=== PATIENT | female | born 1970 | race Caucasian/White ===

== ENCOUNTER 2022-06-21 08:34 | Outpatient (CLI) | payer OTHER, SELFPAY | END 2022-06-21 08:35 | disposition home or self-care (01) | LOC: NFLDREF 06-22 16:07 | PROVIDERS: PCP Physician Assistant Medical; Referring Provider Physician Assistant Medical; Visit Provider Physician Assistant Medical | DX: Z00.00 Encounter for general adult medical examination without abnormal findings (principal); F41.9 Anxiety disorder, unspecified; L70.9 Acne, unspecified; Z13.6 Encounter for screening for cardiovascular disorders; Z13.29 Encounter for screening for other suspected endocrine disorder | CPT/HCPCS: 80053; 80061; 84443 ==

== ENCOUNTER 2022-07-05 14:49 | Outpatient (CLI) | payer OTHER, SELFPAY ==
--- NOTE | 2022-07-05 15:00 | CRLHL7_ITS ---
For Patients: As a result of the Century Cures Act, medical imaging exams and procedure reports are released immediately into your electronic medical record. You may view this report before your referring provider. If you have questions, please contact your health care provider. BILATERAL SCREENING MAMMOGRAM WITH COMPUTER-AIDED DETECTION AND TOMOSYNTHESIS TECHNIQUE: CC and MLO views were obtained. These mammographic images have been obtained using full-field digital technique. These mammographic images were interpreted with the benefit of computer-aided detection. Breast Tomosynthesis was used in this interpretation. COMPARISON FILM: 06/18/21, 06/07/20, 04/27/19. FINDINGS: The breasts are heterogeneously dense, which may obscure small masses IMPRESSION: There is no radiographic evidence for malignancy. ASSESSMENT: BI-RADS Category 1: Negative RECOMMENDATION: Routine screening mammogram in 1 year. A lay language report of this examination will be provided to the patient. Chapo Dial M.D. Diagnostic/Nuclear Medicine Radiologist [email or web address] CHANNING/Dictated by: Chapo Dial MD @ 07/08/2022 9:08:00 AM (Electronically Signed)
== END 2022-07-05 14:50 | disposition home or self-care (01) ==
LOC: MAMMO 14:50
PROVIDERS: PCP Physician Assistant Medical; Visit Provider Physician Assistant Medical
DX: Z12.31 Encounter for screening mammogram for malignant neoplasm of breast (principal); R92.2 Inconclusive mammogram
CPT/HCPCS: 77063; 77067

== ENCOUNTER 2023-07-07 15:05 | Outpatient (CLI) | payer OTHER, SELFPAY ==
--- OUTSIDE RECORDS SUMMARY | 2023-07-07 15:07 | XMS_ITS | Clinical Summary ---
Author Name Unknown Organization [facility] Address [address] [place] [address] Care Team Providers Care Product Info Specialist Name Role Phone Denia Ramey MD Unavailable [phone] Jonelle Marie RN Unavailable Unavailab Denia Reyes MD Unavailable [phone] Allergies Active Allergy Reactions Criticality Noted Date Comments Clindamycin Rash Low 04/10/2015 Levofloxacin 06/17/2013 Penicillins 06/17/2013 Sulfa Antibiotics 06/17/2013 Tetracycline Other (See Comments) High 04/10/2015 Chest tightness Hydrocodone-Acetaminophe n 06/17/2013 Medications Medication Sig Dispensed Refills Start Date End Date Status VITAMIN D, CHOLECALCIFEROL, PO Take by mouth daily Active MAGNESIUM OXIDE PO Active St Lima Wort 300 MG CAPS Active Cyanocobalamin (VITAMIN B 12 PO) Active Multiple Vitamins-Minerals (ZINC PO) Active UNABLE TO FIND MEDICATION NAME: vitamin b 6 Active cetirizine (ZYRTEC) 10 MG tablet Take 10 mg by mouth 10/21/2014 Act loren Active Problems Problem Noted Date Diagnosed Date 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 lagophthalmos left upper eyelid 2015 Facial paralysis on left side 07/10/2015 Dysarthria 07/10/2015 Oral phase dysphagia 07/10/2015 Encounters Date Type Department Care Team Description 07/07/2023 Travel 05/23/2023 Travel 04/18/2023 Travel from Last 3 Months Immunizations Name Administration Dates Next Due Influenza (IIV3) PF 12/18/2011 Influenza Vaccine >6 months,quad, PF 12/05/2015 Influenza Vaccine, 6+MO IM ( QUADRIVALENT W/PRESERVATIVES) 12/05/2016 TD,PF 7+ (Tenivac) 03/02/2000 TDAP (Adacel,Boostrix) 12/14/2010 Family History Medical History Relation Comments Cancer Father prostate Hypertension Father Prostate Cancer Father Cancer Maternal Grandfather mesotheliom a Hypertension Maternal Grandmother Cancer Paternal Grandfather throat Other Cancer Paternal Grandfather Cancer Paternal Grandmother pancreatic Other Cancer Paternal Grandmother pancreatic Relation Status Comments Father Maternal Grandfather Maternal Grandmother Paternal Grandfather Paternal Grandmother Social History Tobacco Use Types Packs/Day Years Used Date Smoking Tobacco: Never Smokeless Tobacco: Never Tobacco Cessation:Counseling Given: No Alcohol Use Standard Drinks/Week Comments Yes 0 (1 standard drink = 0.6 oz pur e alcohol) 2/week PHQ-2 Answer Date Recorded PHQ-2 Score 0 03/10/2018 Adolescent Education Answer Date Record ed Getting School Help Needed Not on file 11/23 Sex and Gender Information Value Date Recorded Sex Assigned at Female 06/21/2021 7:34 PM CDT Gender Identity Female 06/21/2021 7:34 PM CDT Sexual Orientation Straight 06/21/2021 7: 34 PM CDT Last Filed Vital Signs Vital Sign Reading Time Taken Comments Blood Pressure 120/72 04/24/2015 7:40 AM HAND SCRAPER Pulse 91 04/24/2015 7:40 AM HAND SCRAPER Temperature 36.8 ??C (98.2 ??F) 04/24/2015 7:40 AM CS T Respiratory Rate 16 04/01/2015 5:36 PM HAND SCRAPER Oxygen Saturation 98% 04/24/2015 7:40 AM HAND SCRAPER Inhaled Oxygen Concentration - - Weight 59.9 kg (132 lb) 02/03/2019 11:21 AM HAND SCRAPER Height 170.2 cm (5' 7) 02/03/2019 11:21 AM HAND SCRAPER Body Mass Index 20.67 02/03/2019 11:21 AM HAND SCRAPER Plan of Treatment Health Maintenance Due Date Last Done Comments ADVANCE CARE PLANNING 1969 ANNUAL REVIEW OF HM ORDERS 1969 CT COLONOGRAPHY 1969 FIT 1969 FLEX SIG 1969 sDNA (Cologuard) 1969 COLONOSCOPY 08/22/1979 COLORECTAL CANCER SCREENING 08/22/1979 HIV SCREENING 1984 HEPATITIS C SCREENING 08/22/1987 GLUCOSE 10/09/2013 10/09/2010 MAMMO SCREENING 10/19/2017 10/20/2015, 11/02, 10/18/2014 LIPID 10/25/2019 10/24/2014, 10/09/2010 YEARLY PREVENTIVE VISIT 04/02/2020 04/02/2019 HPV TEST 03/16/2021 03/16/2018, 03/03, 06/01/2014, Additional history exists PAP 03/16/2021 03/16/2018, 03/03, 06/01/2014, Additional history exists PHQ-2 (once per calendar year) 2023 04/10/2015 DTAP/TDAP/TD IMMUNIZATION (3 - Td or Tdap) 02/28/2031 02/28/2021, 12/14/2010, 03/02/2000 HEPATITIS B IMMUNIZATION Completed 005, 07/13/2004, 06/11/2004 ZOSTER IMMUNIZATION Completed 10/15/2021, INFLUENZA VACCINE Completed 12/17/2022, , 11/26/2018, Additional history exists COVID-19 Vaccine Completed 01/04/2023, 08/2021, 01/04/2021, Additional history exists HPV IMMUNIZATION Aged Out No longer e ligible based on patient's age to complete this topic IPV IMMUNIZATION Aged Out No longer e ligible based on patient's age to complete this topic MENINGITIS IMMUNIZATION Aged Out No l onger eligible based on patient's age to complete this topic Pneumococcal Vaccine: Pediatrics (0 to 5 Years) and At-Risk Patients (6 to 64 Years) Aged Out No longer eligible based on patient's age to complete this topic RSV MONOCLONAL ANTIBODY Aged Out No l onger eligible based on patient's age to complete this topic Procedures Procedure Name Priority Date/Time Associated Diagnosis Comments HC CHEMODENERVATION, FACE NERVE MUSCLE Routine 07/07/2023 1:02 PM CDT 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 HC CHEMODENERVATION MUSCLE NECK UNILAT Routine 04/18/2023 4:55 PM HAND SCRAPER 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 HC CHEMODENERVATION, FACE NERVE MUSCLE Routine 04/18/2023 4:55 PM HAND SCRAPER 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 MAMMOGRAM - HIM SCAN 10/20/2015 12:00 AM CDT LIPID PROFILE Routine 10/24/2014 GLUCOSE Routine 10/09/2010 HCL PAP SMEAR Routine 07/26/1998 1:18 PM CDT Gynecologic Examination from Last 3 Months or Most Recently Relevant to Health Maintenance Results * MAMMOGRAM - HIM SCAN (10/20/2015 12:00 AM CDT) Anatomical Region Laterality Modality Other 10/20/2015 Provider Outside IMG MAMMOGRAPHY NIA SAUCEDO * Lipid Profile (10/24/2014) Cholesterol 186 115 - 199 mg/dL EXTERNAL LAB Triglycerides 58 mg/dL EXTERNAL LAB HDL Cholesterol 73 mg/dL EXTERNAL LAB LDL Cholesterol Calculated 101 mg/dL EXTERNAL LAB Blood specimen (specimen) 10/24/2014 Narrative EXTERNAL LAB - 10/24/2014 [facility] 05/15/2013 - 10/24/2014 Provider Outside LAB - BLOOD ORDERABL ES EXTERNAL LAB External Lab * Glucose (10/09/2010) Glucose 78 70 - 99 mg/dL EXTERNAL LAB Blood specimen (specimen) 10/09/2010 Narrative EXTERNAL LAB - 10/09/2010 [facility] 06/21/2008-03/07/2015 Provider Outside LAB - BLOOD ORDERABL ES Performing Organization Address City/[facility]/ZIP Co de Phone Number EXTERNAL LAB * PAP SMEAR (07/26/1998 1:18 PM CDT) Unlabelled DNR [facility] Biopsy Sent DNR [facility] Source VAG,CERV,E NDOCERV [facility] LMP POST [facility] PARA 3 [facility] 2 [facility] Clinical History DNR [facility] Therapy DNR [facility] Last Pap Diagnosis WITHIN NORMAL LIMITS [facility] PAP Date [id number] [facility] Specimen # DNR [facility] Tissue DNR [facility] Tissue Date DNR [facility] Statement of Adequacy [facility] Comment: SATISFACTORY FOR INTERPRETATION POST MENOPAUSAL PATIENT. ??NO ENDOCERVICAL CELLS SEEN. General Categorization DNR [facility] Descriptive Diagnosis [facility] Comment: WITHIN NORMAL LIMITS ATROPHIC CELL PATTERN Recommendations DNR [facility] DNR 114,,,,,, [facility] DNR DNR [facility] DNR DNR [facility] DNR DNR [facility] . [facility] Comment: ?PAP SMEARS ARE SUBJECT TO BOTH FALSE NEGATIVE AND FALSE ? POSITIVE RESULTS EVIDENCED BY DATA PUBLISHED IN THE ? MEDICAL LITERATURE. ??YOUR PATIENT'S RESULT SHOULD BE ? INTERPRETED IN THIS CONTEXT, TOGETHER WITH THE PATIENT'S ? HISTORY AND CLINICAL FINDINGS. TESTING LOCATION ? THIS TEST WAS PERFORMED AT [facility] ? [address] [place] [address]. [id number] ? PHONE NUMBERS FOR CYTOLOGY INQUIRES, INCLUDING SLIDE REQUESTS ? EXT. [id number] ?? EXT. [id number] 07/24/1998 Indiana Sanots MD LABORATORY Performing Organization Address City/[facility]/ZIP Co de Phone Number [facility] from Last 3 Months or Most Recently Relevant to Health Maintenance Care Teams Product Info Specialist Relationship Specialty Start Date End Date Denia Ramey MD [address] [place] [address] Otolaryngology 11/22/15 Jonelle Marie, RN Registered Nurse 03/07/16 Denia Ramey MD [address] [place] [address] Assigned Surgical Provider 12/24/19
--- OUTSIDE RECORDS SUMMARY | 2023-07-07 15:07 | XMS_ITS | Patient Health Record ---
Author Name Unknown Organization [facility] Address [address] [place] [address] Care Team Providers Care Laminate Floor Installer Name Role Phone None, No PCP Primary Care Provider UnavailAdan Trevizo Unavailable [phone] Nori Gonzalez Unavailable Allergies Allergen (clinical drug ingredient) Drug/Non Drug Allergy documented on EMR Reaction Allergy Type Onset Date Status clindamycin Clindamycin Unknown Drug Allergy Act loren Penicillin Unknown Drug Allergy Active Substance with sulfonamide structure and antibacterial mechanism of action (substance) Sulfa Antibiotics Unknown Drug Allergy Active tetracycline Tetracycline Unknown Drug Allergy A ctive Results Component Value Reference Range Notes THINPREP TIS AND HPV mRNA E6 /E7 (30 yrs and over) Reviewed date:08/27/2022 10:04:23 AM Interpretation: Performing Lab:[facility], [id number], [id number] Marcin Christensen Notes/Report: HPV mRNA E6/E7 Not Detected Not Detected Methodology: Legislative Analyst-Mediated Amplification This assay detects E6/E7 viral messenger RNA (mRNA) from 14 high-risk HPV types (16,18,31,33,35,39,45,51,52,5 6,58,59,66,68). Cervical sources are required for HPV testing. If a vaginal source from a patient who has had a total hysterectomy with removal of cervix was submitted, please contact the testing laboratory for alternative testing options. For additional information, please refer to http://education.[employer].com/faq/EKS455c0 (This link if provided for information/ educational purposes only.) Reason For Referral No Information Medications Medication SIG (Take, Route, Fr equency, Duration) Notes Start Date End Date Status B Complex Active Loratadine Active Estroven Active Eflornithine HCl Act loren Vitamin D Active Ocuvite Active Iron Active Vitamin C Active Calcium Active Social History Tobacco Use: Social History Observation Description Date Details (start date - stop date) Never Smoker NA - NA Tobacco Use/Smoking Question Answer Notes Are you a nonsmoker Vital Signs Blood pressure diastolic 84 mm Hg 08/20/2022 Height 65 in 08/20/2022 Blood pressure systolic 132 mm Hg 08/20/2022 Weight 139.4 lbs 08/20/2022 BMI 23.19 kg/m2 08/20/2022 Encounters Encounter Location Date Provider Diagnosis [facility] [address] [place] [address] 06/24/2023 Adan Glover [facility] [address] [place] [address] 08/20/2022 Nori Charles Encounter for annual routine gynecological examination Z01.419 and Encounter for screening for human papillomavirus (HPV) Z11.51 [facility] [address] [place] [address] 08/20/2022 Nori Charles Gynecologic exam normal Z01.419 Assessments Encounter Date Diagnosis (ICD Code) Assessment Notes Treat ment Notes Treatment Clinical Notes 08/20/2022 Gynecologic exam normal (ICD-10 - Z01.419) 08/20/2022 Encounter for screening for human papillomavirus (HPV) (ICD-10 - Z11.51) 08/20/2022 Encounter for annual routine gynecological examination (ICD-10 - Z01.419) 08/20/2022 Other 1. She is going to consider symptoms and if she desires HRT 2. pap today 3. She will call with any concerns Plan Of Treatment Next Appt Details Provider Name:Adan dunne, 08/13/2023 11:00:00 AM, [address] [place] [place], [address], Insurance Providers Payer Name Payer Address Payer Phone Subscriber Number Group Number Insured Name Patient Relationship to Insured Coverage Start Date Coverage End Date Preferred One PPO [address] [address] [place] [id number] Lita Miner Self - patient is the insured Medical (General) History Medical History History ICD Code Chicken Pox Surgical History Surgery Date(Month/Year) Bunionectomy left foot 2020
--- OUTSIDE RECORDS SUMMARY | 2023-07-07 15:08 | XMS_ITS | Encounter Summary ---
Author Name Unknown Organization [facility] Address [address] [place] [address] Care Team Providers Care Professor Of Philosophy Name Role Phone None Primary Care Provider Unavailabl e Denia Rmaey MD Unavailable [phone] Elin Tristan AuD Unavailable [phone] Brittnee Espinoza AuD Unavailable [phone] Verified, Pcp Unknown Primary Care Provider Unav ailable Jonelle Marie RN Unavailable Unavailab Arcadio Moore MD Unavailable [phone] Arcadio Castaneda MD Unavailable [phone] Deina Ramey MD Unavailable [phone] Encounter Details Date Type Department Care Team (Late st Contact Info) Description 07/28/2015 [facility] Medical Advice [facility] [address] [facility] [facility] [address] [place] [address] Denia Ramey MD [address] [facility] [address] [place] [address] Social History Tobacco Use Types Packs/Day Years Used Date Smoking Tobacco: Never Smokeless Tobacco: Never Alcohol Use Standard Drinks/Week Comments Yes 0 (1 standard drink = 0.6 oz pur e alcohol) 2/week Sex and Gender Information Value Date Recorded Sex Assigned at Female 06/21/2021 7:34 PM CDT Gender Identity Female 06/21/2021 7:34 PM CDT Sexual Orientation Straight 06/21/2021 7: 34 PM CDT documented as of this encounter Plan of Treatment Not on file documented as of this encounter Visit Diagnoses Not on filedocumented in this encounter Care Teams Professor Of Philosophy Relationship Specialty Start Date End Date None PCP - General 06/17/13 11/27/15 Verified, Pcp Unknown PCP - General 11/28/15 10/31/16 [place] [address] [place] [id number] PCP - Assigned PCP 03/16/15 04/25/18 Denia Ramey MD [address] [address] MD Otolaryngology 11/22/15 Elin Tristan AuD [address] [address] Fabricating Machine Operator Audiology 11/22/15 04/07/17 Brittnee Espinoza AuD [facility] [address] [place] [address] Fabricating Machine Operator Audiology 11/28/15 04/01/17 Jonelle Marie, RN Registered Nurse 03/07/16 [place] [address] [place] [id number] Assigned PCP 03/16/15 04/25/18 Denia Ramey MD [address] [address] Assigned Surgical Provider 12/24/19 documented as of this encounter
--- OUTSIDE RECORDS SUMMARY | 2023-07-07 15:08 | XMS_ITS | Referral Summary ---
Author Name Unknown Organization [facility] Address [address] [place] [address] Care Team Providers Care Fruit Or Nut Farmworker Name Role Phone Denia Ramey MD Unavailable [phone] Jonelle Marie RN Unavailable Unavailab le Denia Ramey MD Unavailable [phone] Encounters Date Type Department Care Team Description 07/07/2023 Travel 05/23/2023 Travel 04/18/2023 Travel from Last 3 Months Allergies Active Allergy Reactions Criticality Noted Date [...] 07/10/2015 Dysarthria 07/10/2015 Oral phase dysphagia 07/10/2015 Immunizations Name Administration Dates Next Due Influenza (IIV3) PF 12/18/2011 Influenza Vaccine >6 months,quad, PF 12/05/2015 Influenza Vaccine, 6+MO IM ( QUADRIVALENT W/PRESERVATIVES) 12/05/2016 TD,PF 7+ (Tenivac) 03/02/2000 TDAP (Adacel,Boostrix) 12/14/2010 Social History Tobacco Use Types Packs/Day Years [...] Comments Blood Pressure 120/72 04/24/2015 7:40 AM HUMAN PROJECTILE Pulse 91 04/24/2015 7:40 AM HUMAN PROJECTILE Temperature 36.8 ??C (98.2 ??F) 04/24/2015 7:40 AM CS T Respiratory Rate 16 04/01/2015 5:36 PM HUMAN PROJECTILE Oxygen Saturation 98% 04/24/2015 7:40 AM HUMAN PROJECTILE Inhaled Oxygen Concentration - - Weight 59.9 kg (132 lb) 02/03/2019 11:21 AM HUMAN PROJECTILE Height 170.2 cm (5' 7) 02/03/2019 11:21 AM HUMAN PROJECTILE Body Mass Index 20.67 02/03/2019 11:21 AM HUMAN PROJECTILE Plan of Treatment Not on file Procedures Procedure Name Priority Date/Time Associated Diagnosis Comments HC CHEMODENERVATION, FACE NERVE MUSCLE Routine 07/07/2023 1:02 PM CDT 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 HC CHEMODENERVATION MUSCLE NECK UNILAT Routine 04/18/2023 4:55 PM HUMAN PROJECTILE 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 05/15/2013 - 10/24/2014 Provider Outside LAB - BLOOD ORDERABL ES EXTERNAL LAB External Lab * Glucose (10/09/2010) Glucose 78 70 - 99 mg/dL EXTERNAL LAB Blood specimen (specimen) 10/09/2010 Narrative EXTERNAL LAB - 10/09/2010 [facility] 06/21/2008-03/07/2015 Provider Outside LAB - BLOOD ORDERABL ES EXTERNAL LAB * PAP SMEAR (07/26/1998 1:18 PM CDT) Unlabelled DNR [facility] Biopsy Sent DNR [facility] Source VAG,CERV,E NDOCERV [facility] LMP POST [facility] PARA 3 [facility] 2 [facility] Clinical History DNR [facility] Therapy DNR [facility] Last Pap Diagnosis WITHIN NORMAL LIMITS [facility] PAP Date [id number] [facility] Specimen # DNR [facility] Tissue DNR [facility] Tissue Date DNR [facility] Statement of Adequacy [facility] Comment: SATISFACTORY FOR INTERPRETATION POST MENOPAUSAL PATIENT. ??NO ENDOCERVICAL CELLS SEEN. General Categorization DNR [facility] Descriptive Diagnosis [facility] Comment: WITHIN NORMAL LIMITS ATROPHIC CELL PATTERN Recommendations DNR [facility] DNR 114,,,,,, [facility] DNR DNR [facility] DNR DNR [facility] DNR DNR [facility] . [facility] Comment: ?PAP SMEARS ARE SUBJECT TO BOTH FALSE NEGATIVE AND FALSE ? POSITIVE RESULTS EVIDENCED BY DATA PUBLISHED IN THE ? MEDICAL LITERATURE. ??YOUR PATIENT'S RESULT SHOULD BE ? INTERPRETED IN THIS CONTEXT, TOGETHER WITH THE PATIENT'S ? HISTORY AND CLINICAL FINDINGS. TESTING LOCATION ? THIS [facility] PERFOR[facility] AT [facility] ? [address]. [id number] ? PHONE NUMBERS FOR CYTOLOGY INQUIRES, INCLUDING SLIDE REQUESTS ? EXT. [id number] ?? EXT. [id number] 07/24/1998 Indiana Santos MD LABORATORY Performing Organization Address City/State/[facility] Co de Phone Number [facility] from Last 3 Months or Most Recently Relevant to Health Maintenance Care Teams Fruit Or Nut Farmworker Relationship Specialty Start Date End Date Denia Ramey MD [address] [address] Otolaryngology 11/22/15 Jonelle Marie, RN Registered Nurse 03/07/16 Denia Ramey MD [address] [place] [address] Assigned Surgical Provider 12/24/19
--- OUTSIDE RECORDS SUMMARY | 2023-07-07 15:08 | XMS_ITS | Encounter Summary ---
Author Name Unknown Organization [facility] Address [address] [place] [address] Care Team Providers Care Private Branch Exchange Repairer Name Role Phone Denia Ramey MD Unavailable Jonelle Marie RN Unavailable Unavailab Denia Reyes MD Unavailable [phone] Encounter Details Date Type Department Care Team (Latest Contact Info) Description 04/18/2023 Travel Social History Tobacco Use Types Packs/Day Years [...] on filedocumented in this encounter Care Teams Private Branch Exchange Repairer Relationship Specialty Start Date End Date Denia Ramey MD [address] [place] [address] [address] [place] [address] Otolaryngology 9/21/16 Jonelle Marie, RN Registered Nurse 03/07/16 Denia Ramey MD [address] [place] [address] Assigned Surgical Provider 12/24/19 documented as of this encounter
--- OUTSIDE RECORDS SUMMARY | 2023-07-07 15:08 | XMS_ITS | Encounter Summary ---
Author Name Unknown Organization [facility] Address [address] [place] [address] Care Team Providers Care Television Newscast Director Name Role Phone Denia Ramey MD Unavailable Jonelle Marie RN Unavailable Unavailab Denia Reyes MD Unavailable Encounter Details Date Type Department Care Team (Latest Contact Info) Description 05/23/2023 Travel Social History Tobacco Use Types Packs/Day [...] on filedocumented in this encounter Care Teams Television Newscast Director Relationship Specialty Start Date End Date Denia Ramey MD [address] [place] [address] [address] [place] [address] Otolaryngology 9/21/16 Jonelle Marie, RN Registered Nurse 03/07/16 Denia Ramey MD [address] [place] [address] Assigned Surgical Provider 12/24/19 documented as of this encounter
--- OUTSIDE RECORDS SUMMARY | 2023-07-07 15:08 | XMS_ITS | Clinical Summary ---
Author Name Unknown Organization [facility] Address [address] [place] [address] Care Team Providers Care Patient Registration Manager Name Role Phone Chapo Chiang MD Primary Care Provider [phone] Source Comments You are receiving this document as you are listed as the primary care provider,follow-up provider, or the patient has been referred to you for consultation.This is in compliance with the Medicare andMedicaid EHR Incentive Program,which states Providers who transition their patient to another setting of careor provider of care or refers their patient to another provider of care shouldprovide summary care record for each transition of care or referral. [facility] Allergies Active Allergy Reactions Criticality Noted Date Comments Amoxicillin 05/14/2003 PN: LW Reaction: Rash, Generalized Clindamycin 05/14/2003 PN: LW Reaction: Rash, Generalized Hydrocodone 01/09/2005 PN: LW Reaction: itchy, dizziness Minocycline 03/24/2007 PN: LW Reaction: heartburn Other 10/05/2004 PN: LW Other1: -Vicodine-itchy and dizzy 10/05 Sulfamethoxazole-Trimethop rim 12/31/2004 PN: LW Reaction: rash Medications Medication Sig Dispensed Refills Start Date End Date Status Multiple Vitamins-Minerals (MULTIVITAMIN OR) Take 1 tablet by mouth daily (every 24 hours). 100 13 09/01/2006 Active loratadine-pseudoeph edrine (CLARITIN-D) 10-240 MG tablet Take 1 tablet by mouth daily as needed. LW Addl Instr:Indicated for: Allergic Nasal Congestion 90 3 10/21/2005 Active UNKNOWN MEDICATION Indications: PN: 06/22/2007 Active tazarotene (AKA TAZORAC) 0.05 % cream Apply 1 Application topically every morning. LW Comment:needs apt. 06/2008 30 05/02/2008 Active Benzoyl Peroxide-Erythromyci n (BENZAMYCIN) 5-3 % gel Apply 1 Application topically 2 times daily. LW Addl Instr:Wash, rinse, and dry skin before applying. Avoid eyes and mucus membranes. Indicated for: Acne 46.6 2 03/07/2008 Active Additional Information Patient not taking.Reported on 04/02/2019 Active Problems Problem Noted Date Diagnosed Date Allergic rhinitis 08/07/2002 Overview: Rhinitis Allergic NOS Immunizations Name Administration Dates Next Due Flu Vac (3+ yrs) 12/18/2011 Flu Vac Preserv Free (3+yrs) 01/26/2007,02/01/20 06,01/31/2006 HepB Adult (Engerix-B, 20+ y rs, 3 dose series) 12/17/2004,07/13/2004,06/11/2004 Influenza ([place] Only) (Flul aval Quad 0.5, 3+ yrs) 12/05/2016 Influenza IIV4 (Quadrivalent) 0.5mL (70841) 06/2015 Td 03/02/2000 Tdap 12/14/2010 Family History Medical History Relation Name Comments Cancer Father Heart Disease Father Hypertension Father Relation Name Status Comments Father Alive Mother Alive Brother 1 Alive Brother 2 Alive Maternal Grandfather Maternal Grandmother Paternal Grandfather Paternal Grandmother Social History Tobacco Use Types Packs/Day Years Used Date Smoking Tobacco: Never Alcohol Use Standard Drinks/Week Comments Yes 0 (1 standard drink = 0.6 oz pur e alcohol) 2-3 week Sex and Gender Information Value Date Recorded Sex Assigned at Not on file Gender Identity Not on file Sexual Orientation Not on file Last Filed Vital Signs Vital Sign Reading Time Taken Comments Blood Pressure 157/66 04/02/2019 7:44 AM PRODUCE MANAGER Pulse 94 04/02/2019 7:44 AM PRODUCE MANAGER Temperature 36.7 ??C (98.1 ??F) 06/11/2004 1 2:24 PM CDT C: 36.7 C Respiratory Rate - - Oxygen Saturation - - Inhaled Oxygen Concentration - - Weight 60.4 kg (133 lb 3.2 oz) 04/02/2019 7:44 A M PRODUCE MANAGER Height 170.2 cm (5' 7) 04/02/2019 7:44 AM PRODUCE MANAGER Body Mass Index 20.86 04/02/2019 7:44 AM PRODUCE MANAGER Plan of Treatment Health Maintenance Due Date Last Done Comments Colon Cancer Screening Plan Due 1970 Hep C Screening (Preventive Services) 1970 Mammogram 1970 HIV Screening (Preventive Services) 1985 Zoster/Shingles (1 of 2) 08/22/2019 Adult Preventive Visit 04/02/2020 04/02/2019 DTaP/Tdap/Td (2 - Tdap) 12/14/2020 12/14/2010, 03/02 Cervical Cancer Screening 03/16/20212018 (Completed), 02/09/2007, 02/06/2006, Additional history exists COVID-19 Vaccine ( season) 2022 04/28/2020, 03/31/2020 Influenza (Season Ended) 2023 019, 12/05/2016, 12/05/2015, Additional history exists Cholesterol 04/02/2024 04/02/2019, 04/03, 08/19/2002 HepB Completed 12/17/2004, 07/01, 06/11/2004 HepA Aged Out No longer eligi ble based on patient's age to complete this topic Hib Aged Out No longer eligi ble based on patient's age to complete this topic IPV (Polio) Aged Out No longer eligi ble based on patient's age to complete this topic MCV4 Aged Out No longer eligi ble based on patient's age to complete this topic Pneumococcal Aged Out No longer eligi ble based on patient's age to complete this topic Procedures Procedure Name Priority Date/Time Associated Diagnosis Comments LIPID PANEL & DIRECT LDL (IF NEEDED) Routine 04/02/2019 8:18 AM PRODUCE MANAGER Screening cholesterol level ANATOMICAL PATH LIQUID BASED Routine 02/09/2007 7:07 AM PRODUCE MANAGER from Last 3 Months or Most Recently Relevant to Health Maintenance Results * (ABNORMAL) Lipid Panel - LDLD if Trig Hi [CHOLF] (04/02/2019 8:18 AM PRODUCE MANAGER) Pathologist [facility] Cholesterol 207(H) 0 - 199 mg/dL 04/02/2019 12:47 PM [facility] Triglyceride 69 <=149 mg/dL 04/02/2019 12:47 PM [facility] HDL Cholesterol 75 >=40 mg/dL 0 12:47 PM [facility] LDL, Calculated 118 <130 mg/dL 0 12:47 PM [facility] Non HDL Chol, Calculated 132 mg/dL 04/02/2019 12:47 PM [facility] Cholesterol/HDL Ratio 2.8 04/02/2019 12:47 PM [facility] Hours Fasting 12 04/02/2019 12:47 PM [facility] Blood Venipuncture / Unknown 04/02/2019 8:18 AM PRODUCE MANAGER 04/02/2019 8:18 AM [facility] Fany Edwards DO LAB_1 [facility] [address] [place] [address], [facility] [phone] [facility] [address] [place] [address], [facility] [phone] * Pap Smear (02/09/2007 7:07 AM PRODUCE MANAGER) [facility] PAP Smear Liquid Based SEE TEXT No normal range HP CONVERSION Comment: Patient: LITA VALENZUELA ? CERVICAL CYTOLOGY REPORT Pathology # ??[id number] ?Date Obtained: [id number] ? Date Received: CYTOLOGIC IMPRESSION: Negative for intraepithelial lesion or malignancy. Fungal organisms identified. Verified 02/12/07 by: ??LKR ?(electronic signature) ? ADDITIONAL DATA LMP: CLINICAL HIST LIQUID BASED PAP CERVICAL SPECIMEN ADEQUACY: ?? Satisfactory. ENDOCERVICAL CELLS: ??Present. 02/09/2007 7:07 AM PRODUCE MANAGER Ritu Ty APRN, SANDER MACHINE LAB_1 Performing Organization Address City/State/[facility] Co de Phone Number HP CONVERSION from Last 3 Months or Most Recently Relevant to Health Maintenance Care Teams Patient Registration Manager Relationship Specialty Start Date End Date Chapo Chiang MD [address] [place] [address] PCP - General 06/03/10
--- OUTSIDE RECORDS SUMMARY | 2023-07-07 15:08 | XMS_ITS | Data Portability ---
Author Name Unknown Address [address] [place] [address] Phone [phone] Organization [facility], Main Office Address [address] [place] [address] Assessment Encounter Date Assessment Date Assessment LastModified by Organization Details LastModified Time 02/26/2021 02/26/2021 1. Biopsy-proven basal carcinoma left alar crease here for Mohs surgery verbally and with the digital board in the presence of her we reviewed standard surgery versus Mohs surgery we plan to take a very small conservative approach to see if there is an option for granulation. Written and verbal informed consent obtained discussing pain discomfort downtime scarring efficacy signs and symptoms of infection and risk of infection Anesthetized 1% lidocaine with epinephrine after being cleansed with alcohol Mohs case number M 21? 1 4 9 Stage I: Gentle curette debulking performed half a millimeter margins taken revealing basaloid islands in the dermis and near the epidermis Stage II: No debulking portions of epidermis were taken but mostly the dermis was taken still revealing some localized nodular islands in the dermis Stage III: No debulking peripheral rim of 1 mm of epidermis was taken deeper into the dermis revealing no residual basal carcinoma Total stages 3 total sections 23 final defect 0.7 x 0.3 cm We performed an intermediate closure with 4-0 Vicryl and 3-0 Prolene. les than 2.5 cm But only partial closure we want some granulation tissue to form the concavity of the alar crease. Wound care instructions given pressure dressing applied. Typewritten instructions verbal instructions and cell phone number given Follow-up in [place] at 1130 next Friday Not available 03/11/2021 01:37:23 03/05/2021 03/05/2021 1. Status post Mohs surgery BCC left alar crease intermediate closure allowed to granulate to a certain degree to recreate the alar crease. Healing well. Sutures removed wound care instructions given 2. Longstanding acne flaring off spironolactone. Discussed flutamide at great length she will consider it versus Proscar Reviewed this at great length 3. Leg cramping from spironolactone therefore discontinuation. Follow-up to be arranged. If she wishes start flutamide we will started over the phone. We need to see her back 3 to 4 months afterwards. Which be hopefully a good time to see her for follow-up of the surgery [id number] Not available 03/05/2021 22:54:00 Plan of Treatment Reminders Order Date Submit Date Provider Last Modified By Organization Details Last Modified Time Details Appointments None record ed. Lab None record ed. Referral None record ed. Procedures None record ed. Surgeries None record ed. Imaging None record ed. Medication Orders None record ed. Patient TargetsNo targets recorded. Patient InstructionsNo instructions recorded. Reason for Referral None Reported. Results Created Date Observation Date Name Description Value Unit Range Abnormal Flag LastModifiedBy Organization Detail LastModifiedTime Result Notes None recorded. Medical Equipment None Reported. Allergies Allergen ID Allergen Name Allergen Category Reaction Reaction Severity Criticality Documentation Date Start Date Code Code System Note Provider Name and Address Organization Details Recorded Time 3530 clindamyc in Not available rash Not available Not available 02/26/2021 2582 RxNorm Peterson Anabel [facility] 11:57:57 3531 hydrocodo ne Not available dizziness Not available Not available 02/26/2021 5489 RxNorm Peterson Anabel [facility] 11:58:16 3532 penicilli n V Not available rash Not available Not available 02/26/2021 7984 RxNorm Peterson Anabel [facility] 11:58:31 3533 Medicinal product containin g quinolone and acting as antibacte rial agent (product) medicatio n other Not available Not available 02/26/2021 69101 008 SNOMED jaw pain Peterson Anabel [facility] 11:59:08 3534 Substance with sulfonami de structure and antibacte rial mechanism of action (substanc e) medicatio n rash Not available Not available 02/26/2021 18153 8003 SNOMED Peterson Anabel null, [facility] 11:59:24 3535 tetracycl ine medicatio n chest pain Not available Not available 02/26/2021 19693 RxNorm Peterson Anabel [facility], [facility] 11:59:51 3536 trimethop rim medicatio n rash Not available Not available 02/26/2021 39454 RxNorm Peterson Anabel null, [facility] 12:00:25 3537 sulfameth oxazole medicatio n rash Not available Not available 02/26/2021 08909 RxNorm Peterson Anabel [facility], [facility] 12:00:42 Medications Name Sig Start Date Stop Date Status Note LastModified by Organization Details LastModified Time spironolactone 50 mg tablet active Not Available Not Available Not Available Vitals None Recorded Social History None recorded. Functional Status None recorded. Mental Status None recorded. Family History Nothing Reported. Medical History No medical history recorded. Gynecological HistoryNo gynecological history recorded. Obstetrics History GPAL:G 0 P 0 0 0 0 Past Encounters Encounter ID Performer Location Encounter Start Date Encounter Closed Date Diagnosis/Indication Diagnosis SNOMED-CT Code [id number] Luis Daniel Little MD Main Office [address] [facility] [address] 02/26/2021 09:58:07 03/11/2021 01:38:35 Basal cell carcinoma of nose [id number] Luis Daniel Little MD Main Office [address] [place] [address] 03/05/2021 14:45:53 03/05/2021 22:58:15 Removal of suture [id number] Acne [id number] Health Concerns Section Related Observation LastModified by Organization Detai ls LastModified Time None Recorded Concern Status LastModified by Organization Details LastModified Time None Recorded Advance Directives Directive None Recorded Payers Encounter Date Sequence Insurance Name Policy Number Policy Brown Covered Member ID Brown Member ID Guarantor Name 03/05/2021 1 [employer] [id number] Lita Vernon Asmus [id number] Lita Miner 02/26/2021 1 [employer] [id number] Lita Vernon Asmus [id number] Lita Miner Notes Date Note Type Note Provider Name and Address Organization Details Recorded Time 02/26/2021 text/html HPI Notes: 50-year-old female presents today for Mohs surgery of a biopsy-proven basal carcinoma left ala. Barely perceptible. After the biopsy is not really notable. Does not hurt does not bleed Past medical history, family history and social history unchanged in the interim since her visit in [place] Luis Daniel Little MD [address],[facility] [place], [address], [facility] 03/11/2021 01:41:59 03/05/2021 text/html HPI Notes: Retur ns for suture move status post Mohs surgery the swelling from the photographs has gone down dramatically there is no pain no bleeding He is considering alternatives to spironolactone she cannot tolerate it. Due to leg cramping. We have not instituted any other hormonal therapy yet. Past medical history she has an upcoming bunion surgery. She is not is interested in systemic medicines currently Luis Daniel Little MD [address],[facility] [place], [address], [facility] 03/05/2021 22:57:40 OBGyn Episode No OBEpisode recorded.
--- OUTSIDE RECORDS SUMMARY | 2023-07-07 15:08 | XMS_ITS | Encounter Summary ---
Author Name Unknown Organization [facility] Address [address] [place] [address] Care Team Providers Care Stone Paver Name Role Phone Denia Ramey MD Unavailable Jonelle Marie RN Unavailable Unavailab Denia Reyes MD Unavailable Encounter Details Date Type Department Care Team (Latest Contact Info) Description 07/07/2023 Travel Social History Tobacco Use Types Packs/Day [...] on filedocumented in this encounter Care Teams Stone Paver Relationship Specialty Start Date End Date Denia Ramey MD [address] [place] [address] [address] [place] [address] Otolaryngology 9/21/16 Jonelle Marie, RN Registered Nurse 03/07/16 Denia Ramey MD [address] [place] [address] Assigned Surgical Provider 12/24/19 documented as of this encounter
--- OUTSIDE RECORDS SUMMARY | 2023-07-07 15:08 | XMS_ITS | Clinical Summary ---
Author Name Unknown Organization [facility] Address [place], [place] [address] Care Team Providers Care Emergency Room Nurse Name Role Phone Kai Cruz MD Primary Care Provider [phone] Allergies Active Allergy Reactions Criticality Noted Date Comments Sulfamethoxazole-Trimethopr im Hives 05/20/2014 Clindamycin Hives 05/20/2014 Levofloxacin Other - Describe In Comment Field 05/20/2014 Jaw pain Sulfa (Sulfonamide Antibiotics) Hives 05/20/2014 Hydrocodone-Acetaminophen Dizziness 05/20/2014 Medications Medication Sig Dispensed Refills Start Date End Date Status cetirizine (ZYRTEC) 10 mg tablet Take 1 tablet by mouth once daily. 0 10/21/2014 Active Active Problems No known active problems Social History Tobacco Use Types Packs/Day Years Used Date Smoking Tobacco: Never Smokeless Tobacco: Never Alcohol Use Standard Drinks/Week Comments Yes 0 (1 standard drink = 0.6 oz pur e alcohol) Sex and Gender Information Value Date Recorded Sex Assigned at Not on file Gender Identity Not on file Sexual Orientation Not on file Obstetrics History Last Filed Vital Signs Vital Sign Reading Time Taken Comments Blood Pressure 110/60 10/21/2014 3:44 PM CDT Pulse 72 10/21/2014 3:44 PM CDT Temperature - - Respiratory Rate - - Oxygen Saturation - - Inhaled Oxygen Concentration - - Weight 59 kg (130 lb) 10/21/2014 3:44 PM CDT Height - - Body Mass Index - - Plan of Treatment Health Maintenance Due Date Last Done Comments Tdap 1980 Depression screening for age 12+ 1981 HIV for age 15-65 1984 BMI (ht and wt on same day) for age 18+ 08/22/1987 Hepatitis C screening for age 18-79 08/22/1987 Tetanus booster 1989 Colonoscopy through age 75 2014 Lipids for age 45-75 2014 Mammogram for age 45-75 2014 Zoster (shingles) series for age 50+ (1 of 2) 08/22/2019 Pap test for age 21-65 03/16/2021 9, 03/16/2018, 08/11/2013, Additional history exists COVID-19 vaccine series ( season) 2022 01/04/2021, 04/28/2020, 03/31/2020 Influenza for age 50-64 11/02/2023 Pneumococcal series for age 6-64 Aged Out No longer eligible based on patient's age to complete this topic Procedures Procedure Name Priority Date/Time Associated Diagnosis Comments AIRCRAFT CAPTAIN THIN PREP PAP SCREEN IMAGED Routine 03/16/2018 12:00 PM MODEL AND MOLD MAKER PLASTER from Last 3 Months or Most Recently Relevant to Health Maintenance Results * AIRCRAFT CAPTAIN THIN PREP PAP SCREEN IMAGED (03/16/2018 12:00 PM MODEL AND MOLD MAKER PLASTER) Case Report Gynecologic Cytology Report ? Case: [id number] ? Authorizing Provider: ??Zulema Fagan PA-C ?Collected: ? 03/16/2018 1200 ? First Screen: ?Jenae Guillen ?Received: ?03/16/2018 1630 ? Specimen: ?AIRCRAFT CAPTAIN ThinPrep Vial Screening, Cervical/Vaginal ? 03/23/2018 2:09 PM MODEL AND MOLD MAKER PLASTER [facility] INTERPRETATION/ RESULT NEGATIVE FOR INTRAEPITHELIAL LESION OR MALIGNANCY (NIL) (none) 03/23/2018 2:09 PM [facility] IMEN ADEQUACY Satisfactory for evaluation No endocervical component seen 03/23/2018 2:09 PM MODEL AND MOLD MAKER PLASTER [facility] HPV REQUEST HPV if ASCUS 03/23/2018 2:09 PM MODEL AND MOLD MAKER PLASTER [facility] Date of LMP 12/15/2017 03/23/2018 2:09 PM [facility] Last Pap Date 08/11/2013 03/23/2018 2:09 PM MODEL AND MOLD MAKER PLASTER [facility] Last Pap Result NIL 9 2:09 PM MODEL AND MOLD MAKER PLASTER [facility] Comment:HPV NEGATIVE. Automated Review Successful 03/23/2018 2:09 PM [facility] Comment:Specimen processed s uccessfully by automated grades 1 through 6 teacher device, ThinPrep Imaging System, [employer] Note The pap test is a screening technique, not a diagnostic procedure. ??It is used primarily to screen for squamous cancers and precursor lesions. ??Published studies have shown that it is subject to both false negative and false positive results. ??The pap test should not be used as the sole means to diagnose or exclude pre-malignant and malignant lesions. Cytology is screened and interpreted at [facility] - [address], [place] [address] and [facility] - [address] [place] [address]; [place] [address] and [facility] - [address]; [place] [address] and [facility] [address]; [place] [address] 03/23/2018 2:09 PM MODEL AND MOLD MAKER PLASTER [facility] Other (Cervical/Vagina l) 03/16/2018 12:00 PM MODEL AND MOLD MAKER PLASTER 03/16/2018 4:30 PM MODEL AND MOLD MAKER PLASTER [facility] [address] [place] [address], from Last 3 Months or Most Recently Relevant to Health Maintenance Care Teams Emergency Room Nurse Relationship Specialty Start Date End Date Kai Cruz MD PCP - General Family Practice 09/09/17
--- NOTE | 2023-07-07 15:20 | MM_ITS ---
Patient: JEN VALENZUELA Facility:?[facility] Patient ID:?[id number] Site Patient ID:?[id number]. Site :?[id number] Study:?XRay-Breast Bilateral 3D W/CAD-07/07/2023 3:26:18 PM Ordering Physician:Zaria Final Report: BILATERAL SCREENING MAMMOGRAM WITH COMPUTER-AIDED DETECTION AND TOMOSYNTHESIS TECHNIQUE: CC and MLO views were obtained. These mammographic images have been obtained using full-field digital technique. These mammographic images were interpreted with the benefit of computer-aided detection. Breast Tomosynthesis was used in this interpretation. COMPARISON FILM: 07/05/22, 06/18/21, 06/07/20. FINDINGS: There are scattered areas of fibroglandular density IMPRESSION: There is no radiographic evidence for malignancy. ASSESSMENT: BI-RADS Category 1: Negative RECOMMENDATION: Routine screening mammogram in 1 year. A lay language report of this examination will be provided to the patient. Ede Carlson M.D. Diagnostic Radiologist [email or web address] Transcribed: 12:46 p.mGloria juárez/Dictated by: Ede Carlson MD @ 07/08/2023 9:39:00 AM Signed by:?Ede Carlson MD @07/08/2023 1:51:12 PM (Electronic Signature)
== END 2023-07-07 15:06 | disposition home or self-care (01) ==
LOC: MAMMO 15:06
PROVIDERS: PCP Physician Assistant Medical; Visit Provider Physician Assistant Medical
DX: Z12.31 Encounter for screening mammogram for malignant neoplasm of breast (principal)
CPT/HCPCS: 77063; 77067

== ENCOUNTER 2024-08-19 10:16 | Outpatient (CLI) | payer OTHER, SELFPAY ==
--- NOTE | 2024-08-19 12:18 | P.ANES_ITS ---
Anesthesia Charges Start Date/Time Anesthesia Start Date: 08/19/24 Anesthesia Start Time: 11:38 Stop Date/Time Anesthesia Stop Date: 08/19/24 Anesthesia Stop Time: 12:16 Coding CPT Codes CPT Codes: LENIN LWR INTST NDOH NOS - 77604 ([id number]) P1 - NORMAL HEALTHY PATIENT, QK - TRAINING PROFESSIONAL 2-4 CNCRNT ANES PROC, QX - PLANTING MACHINE CREWMAN SVC W/ MED DIRECTION
--- NOTE | 2024-08-19 12:18 | W.ANESCHARGE ---
Anesthesia Charges Start Date/Time Anesthesia Start Date: 08/19/24 Anesthesia Start Time: 11:38 Stop Date/Time Anesthesia Stop Date: 08/19/24 Anesthesia Stop Time: 12:16 Coding CPT Codes CPT Codes: LENIN LWR INTST NDUT NOS - 68996 ([id number]) P1 - NORMAL HEALTHY PATIENT, QK - PEDIATRIC GENETIC COUNSELOR 2-4 CNCRNT ANES PROC, QX - HIGH SCHOOL DIRECTOR SVC W/ MED DIRECTION
--- NOTE | 2024-08-19 12:24 | P.ANES_ITS ---
Anesthesia Charges Start Date/Time Anesthesia Start Date: 08/19/24 Anesthesia Start Time: 11:38 Stop Date/Time Anesthesia Stop Date: 08/19/24 Anesthesia Stop Time: 12:16 Coding CPT Codes CPT Codes: ANETrevor LWR INTST NDSC NOS - 65269 ([id number]) QK - C++ PROFESSOR 2-4 CNCRNT ANES PROC, QX - PLAQUE MAKER SVC W/ MED DIRECTION, P1 - NORMAL HEALTHY PATIENT
--- NOTE | 2024-08-19 12:24 | W.ANESCHARGE ---
Anesthesia Charges Start Date/Time Anesthesia Start Date: 08/19/24 Anesthesia Start Time: 11:38 Stop Date/Time Anesthesia Stop Date: 08/19/24 Anesthesia Stop Time: 12:16 Coding CPT Codes CPT Codes: ANETrevor LWR INTST NDSC NOS - 04723 ([id number]) QK - CHILD DEVELOPMENT PROFESSOR 2-4 CNCRNT ANES PROC, QX - FOREST LOGISTICS MANAGER SVC W/ MED DIRECTION, P1 - NORMAL HEALTHY PATIENT
--- OUTSIDE RECORDS SUMMARY | 2024-08-20 00:51 | XMS_ITS | Clinical Summary ---
Author Organization [facility] Address [address] [place] [address] Care Team Providers Care Machinist First Class Name Role Phone Chapo Chiang MD Primary Care Provider [phone] Source Comments You are receiving this document as you are listed as the primary care provider,follow-up provider, or the patient has been referred to you for consultation.This is in compliance with the Medicare and[facility] EHR Incentive Program,which states Providers who transition their patient to another setting of careor provider of care or refers their patient to another provider of care shouldprovide summary care record for each transition of care or referral. Innovate/Protect Allergies Active Allergy Reactions Criticality Noted Date Comments Amoxicillin 05/14/2003 PN: LW Reaction: Rash, Generalized Clindamycin 05/14/2003 PN: LW Reaction: Rash, Generalized Hydrocodone 01/09/2005 PN: LW Reaction: itchy, dizziness Minocycline 03/24/2007 PN: LW Reaction: heartburn Other 10/05/2004 PN: LW Other1: -Vicodine-itchy and dizzy 10/05 Sulfamethoxazole-Trimethop rim 12/31/2004 PN: LW Reaction: rash Medications Multiple Vitamins-Minera ls (MULTIVITAMIN OR) Take 1 tablet by mouth daily (every 24 hours). 100 13 09/01/200 7 Active loratadine-pseu doephedrine (CLARITIN-D) 10-240 MG tablet Take 1 tablet by mouth daily as needed. LW Addl Instr:Indicated for: Allergic Nasal Congestion 90 3 6 Active UNKNOWN MEDICATION Indications: PN: 8 Active tazarotene (AKA TAZORAC) 0.05 % cream Apply 1 Application topically every morning. LW Comment:needs apt. 06/2008 30 9 Active Benzoyl Peroxide-Erythr omycin (BENZAMYCIN) 5-3 % gel Apply 1 Application topically 2 times daily. LW Addl Instr:Wash, rinse, and dry skin before applying. Avoid eyes and mucus membranes. Indicated for: Acne 46.6 2 9 Active Additional Information Patient not taking.Reported on 04/02/2019 Active Problems Problem Noted Date Diagnosed Date Allergic rhinitis 08/07/2002 Overview (10/23/2016): Rhinitis Allergic NOS Immunizations Immunization Administration Dates Next Due Flu Vac (3+ yrs) 12/18/2011 Flu Vac Preserv Free (3+yrs) 01/26/2007,02/01/20,01/31/2006 HepB Adult (Engerix-B, 20+ y rs, 3 dose series) 12/17/2004,07/13/2004,06/11/2004 Influenza (Leon Only) (Flul aval Quad 0.5, 3+ yrs) 12/05/2016 Influenza IIV4 (Quadrivalent) 0.5mL (92469) 06/2015 Td 03/02/2000 Tdap 12/14/2010 Family History [...] 0.6 oz pur e alcohol) 2-3 week Comments No Sex and Gender Information Value Date Recorded Sex Assigned at Not on file Legal Sex Female 4:43 AM CDT Gender Identity Not on file Sexual Orientation Not on file 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 on file Not on file Not o n file Last Filed Vital Signs Vital Sign Reading Time Taken Comments Blood Pressure 157/66 04/02/2019 7:44 AM ERP PROJECT MANAGER Pulse 94 04/02/2019 7:44 AM ERP PROJECT MANAGER Temperature 36.7 C (98.1 F) 06/11/2004 12:24 PM CDT C: 36.7 C Respiratory Rate - - Oxygen Saturation - - Inhaled Oxygen Concentration - - Weight 60.4 kg (133 lb 3.2 oz) 04/02/2019 7:44 A M ERP PROJECT MANAGER Height 170.2 cm (5' 7) 04/02/2019 7:44 AM ERP PROJECT MANAGER Body Mass Index 20.86 04/02/2019 7:44 AM ERP PROJECT MANAGER Plan of Treatment Health Maintenance Due Date Last Done Comments Colon Cancer Screening Plan Due 1969 Hep C Screening (Preventive Services) 1969 Mammogram 1969 HIV Screening (Preventive Services) 1985 Pneumococcal Vaccine 50+ Yrs (1 of 1 - PCV) 08/22/2019 Zoster/Shingles Vaccine (1 of 2) 08/22/2019 Adult Preventive Visit 04/02/2020 04/02/2019 DTaP/Tdap/Td Vaccine (2 - Tdap) 12/14/2020 12/14/2010, 03/02/2000 Cervical Cancer Screening 03/16/20212018 (Completed), 02/09/2007, 02/06/2006, Additional history exists COVID-19 Vaccine ( season) 2023 04/28/2020, 03/31/2020 Cholesterol 04/02/2024 04/02/2019, 04/03, 08/19/2002 Influenza Vaccine (Season Ended) 2024 11/26/2018, 12/05/2016, 12/05/2015, Additional history exists HepB Vaccine Completed 12/17/2004, 07/01, 06/11/2004 HepA Vaccine Aged Out No longer eligi ble based on patient's age to complete this topic Hib Vaccine Aged Out No longer eligi ble based on patient's age to complete this topic IPV (Polio) Vaccine Aged Out No longe r eligible based on patient's age to complete this topic MCV4 Vaccine Aged Out No longer eligi ble based on patient's age to complete this topic Meningococcal B Vaccine Aged Out No l onger eligible based on patient's age to complete this topic Procedures Procedure Name Priority Date/Time Associated Diagnosis Comments LIPID PANEL & DIRECT LDL (IF NEEDED) Routine 04/02/2019 8:18 AM ERP PROJECT MANAGER Screening cholesterol level ANATOMICAL PATH LIQUID BASED Routine 02/09/2007 7:07 AM ERP PROJECT MANAGER from Last 3 Months or Most Recently Relevant to Health Maintenance Results * (ABNORMAL) Lipid Panel - LDLD if Trig Hi [CHOLF] (04/02/2019 8:18 AM ERP PROJECT MANAGER) Cholesterol 207(H) 0 - 199 mg/dL 04/02/2019 12:47 PM [facility] Triglyceride 69 <=149 mg/dL 04/02/2019 12:47 PM [facility] HDL Cholesterol 75 >=40 mg/dL 0 12:47 PM [facility] LDL, Calculated 118 <130 mg/dL 0 12:47 PM [facility] Non HDL Chol, Calculated 132 mg/dL 04/02/2019 12:47 PM [facility] Cholesterol/HDL Ratio 2.8 04/02/2019 12:47 PM [facility] Hours Fasting 12 04/02/2019 12:47 PM [facility] Blood Venipuncture / Unknown 04/02/2019 8:18 AM ERP PROJECT MANAGER 04/02/2019 8:18 AM ERP PROJECT MANAGER us Fany Edwards DO LAB_1 Final Resu lt [facility] [address] [facility] [place] [address], [facility] [phone] [facility] [address] [place] [address], [facility] [phone] * Pap Smear (02/09/2007 7:07 AM ERP PROJECT MANAGER) PAP Smear Liquid Based SEE TEXT No normal range HP CONVERSION Comment: Patient: LITA VALENZUELA CERVICAL CYTOLOGY REPORT Pathology # [id number] Date Obtained: Date Received: CYTOLOGIC IMPRESSION: Negative for intraepithelial lesion or malignancy. Fungal organisms identified. Verified 02/12/07 by: LKR (electronic signature) ADDITIONAL DATA LMP: CLINICAL HIST LIQUID BASED PAP CERVICAL SPECIMEN ADEQUACY: Satisfactory. ENDOCERVICAL CELLS: Present. 02/09/2007 7:07 AM ERP PROJECT MANAGER us Ritu Ty APRN, FLEET MECHANIC LAB_1 Fi nal Result HP CONVERSION from Last 3 Months or Most Recently Relevant to Health Maintenance Care Teams Machinist First Class Relationship Specialty Start Date End Date Chapo Chiang MD [address] [place] [address] PCP - General 06/03/10
--- OUTSIDE RECORDS SUMMARY | 2024-08-20 00:51 | XMS_ITS | Clinical Summary ---
Author Organization [employer] [facility] [employer] [facility] Address [address] [place] [address] Care Team Providers Care Printing Equipment Mechanic Name Role Phone Kai Cruz MD Primary Care Provider [phone] Allergies Active Allergy Reactions Criticality Noted Date Comments Sulfamethoxazole-Trimethopr im Hives 05/20/2014 Clindamycin Hives 05/20/2014 Levofloxacin Other - Describe In Comment Field 05/20/2014 Jaw pain Sulfa (Sulfonamide Antibiotics) Hives 05/20/2014 Hydrocodone-Acetaminophen Dizziness 05/20/2014 Medications cetirizine (ZYRTEC) 10 mg tablet Take 1 tablet by mouth once daily. 0 10/21/2014 Active Active Problems No known active problems Social History Tobacco Use Types Packs/Day Years Used Date Smoking Tobacco: Never Smokeless Tobacco: Never Alcohol Use Standard Drinks/Week Comments Yes 0 (1 standard drink = 0.6 oz pur e alcohol) Comments Unknown Sex and Gender Information Value Date Recorded Sex Assigned at Not on file Legal Sex Female 8:43 AM LOCAL DELIVERY DRIVER Gender Identity Not on file Sexual Orientation [...] age 18+ 08/22/1987 Hepatitis C screening for ag e 18-79 08/22/1987 Hepatitis B series for 19+ ( 1 of 3 - 19+ 3-dose series) 1988 Tetanus booster 1989 Colonoscopy through age 75 2014 Lipids for age 45-75 2014 Mammogram for age 45-75 2014 Pneumococcal series for age 50+ (1 of 1 - PCV) 08/22/2019 Zoster (shingles) series for age 50+ (1 of 2) 08/22/2019 Pap test for age 21-65 03/16/2021 9, 03/16/2018, 08/11/2013, Additional history exists COVID-19 vaccine series ( season) 2023 01/04/2021, 04/28/2020, 03/31/2020 Influenza Vaccine (Season Ended) 2024 Procedures Procedure Name Priority Date/Time Associated Diagnosis Comments PLASTICS PATTERNMAKER THIN PREP PAP SCREEN IMAGED Routine 03/16/2018 12:00 PM LOCAL DELIVERY DRIVER from Last 3 Months or Most Recently Relevant to Health Maintenance Results * PLASTICS PATTERNMAKER THIN PREP PAP SCREEN IMAGED (03/16/2018 12:00 PM LOCAL DELIVERY DRIVER) Case Report Gynecologic Cytology Report Case: [id number] Authorizing Provider: Zulema Fagan PA-C Collected: 03/16/2018 1200 First Screen: Jenae Guillen Received: 03/16/2018 1630 Specimen: PLASTICS PATTERNMAKER ThinPrep Vial Screening, Cervical/Vaginal 03/23/2018 2:09 PM LOCAL DELIVERY DRIVER [facility] INTERPRETATION/ RESULT NEGATIVE FOR INTRAEPITHELIAL LESION OR MALIGNANCY (NIL) (none) 03/23/2018 2:09 PM LOCAL DELIVERY DRIVER [facility] at 1409 LOCAL DELIVERY DRIVER SPECIMEN ADEQUACY Satisfactory for evaluation No endocervical component seen 03/23/2018 2:09 PM LOCAL DELIVERY DRIVER [facility] HPV REQUEST HPV if ASCUS 03/23/2018 2:09 PM LOCAL DELIVERY DRIVER [facility] Date of LMP 12/15/2017 03/23/2018 2:09 PM LOCAL DELIVERY DRIVER [facility] Last Pap Date 08/11/2013 03/23/2018 2:09 PM LOCAL DELIVERY DRIVER [facility] Last Pap Result NIL 9 2:09 PM LOCAL DELIVERY DRIVER [facility] Comment:HPV NEGATIVE. Automated Review Successful 03/23/2018 2:09 PM LOCAL DELIVERY DRIVER [facility] Comment:Specimen processed s uccessfully by automated garment alteration examiner device, ThinPrep Imaging System, [employer] Note The pap test is a screening technique, not a diagnostic procedure. It is used primarily to screen for squamous cancers and precursor lesions. Published studies have shown that it is subject to both false negative and false positive results. The pap test should not be used as the sole means to diagnose or exclude pre-malignant and malignant lesions. Cytology is screened and interpreted at [facility] - [address], [place] [address] and [facility] - [address]; [place] [address] and [facility] - [address]; [place] [address] and [facility] [address]; [place] [address] 03/23/2018 2:09 PM LOCAL DELIVERY DRIVER [facility] Other (Cervical/Vagina l) 03/16/2018 12:00 PM LOCAL DELIVERY DRIVER 03/16/2018 4:30 PM LOCAL DELIVERY DRIVER june Rylan [facility] Final R esult [facility] [address] [place] [address], [place] from Last 3 Months or Most Recently Relevant to Health Maintenance Insurance [facility] Care Teams Printing Equipment Mechanic Relationship Specialty Start Date End Date Kai Cruz MD PCP - General Family Practice 09/09/17
--- OUTSIDE RECORDS SUMMARY | 2024-08-20 00:51 | XMS_ITS | Clinical Summary ---
Author Organization [facility] Address [address] [place] [address] Care Team Providers Care Oil Pipe Inspector Name Role Phone Denia Ramey MD Unavailable Jonelle Marie RN Unavailable Unavailab Denia Reyes MD Unavailable [phone] Allergies Active Allergy Reactions Criticality Noted Date Comments Clindamycin Rash Low 04/10/2015 Levofloxacin 06/17/2013 Penicillins 06/17/2013 Sulfa Antibiotics 06/17/2013 Tetracycline Other (See Comments) High 04/10/2015 Chest tightness Hydrocodone-Acetaminophe n 06/17/2013 Medications * This document contains information received from the source organization and may not represent a complete record from that organization. 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 Date Type Department Care Team Description 08/16/2024 Travel 06/07/2024 Travel from Last 3 Months Immunizations Immunization Administration Dates Next Due Influenza (IIV3) PF [...] School Help Needed Not on file 11/23 Comments Unknown Sex and Gender Information Value Date Recorded Sex Assigned at Female 06/21/2021 7:34 PM CDT Legal Sex Female 3:27 AM MICROFILMING DOCUMENT PREPARER Gender Identity Female 06/21/2021 7:34 PM CDT Sexual Orientation Straight 06/21/2021 7: 34 PM CDT Last Filed Vital Signs Vital Sign Reading Time Taken Comments Blood Pressure 120/72 04/24/2015 7:40 AM MICROFILMING DOCUMENT PREPARER Pulse 91 04/24/2015 7:40 AM MICROFILMING DOCUMENT PREPARER Temperature 36.8 C (98.2 F) 04/24/2015 7:40 AM MICROFILMING DOCUMENT PREPARER Respiratory Rate 16 04/01/2015 5:36 PM MICROFILMING DOCUMENT PREPARER Oxygen Saturation 98% 04/24/2015 7:40 AM MICROFILMING DOCUMENT PREPARER Inhaled Oxygen Concentration - - Weight 59.9 kg (132 lb) 02/03/2019 11:21 AM MICROFILMING DOCUMENT PREPARER Height 170.2 cm (5' 7) 02/03/2019 11:21 AM MICROFILMING DOCUMENT PREPARER Body Mass Index 20.67 02/03/2019 11:21 AM MICROFILMING DOCUMENT PREPARER Plan of Treatment Health Maintenance Due Date Last Done Comments ADVANCE CARE PLANNING 1969 ANNUAL REVIEW OF HM ORDERS 1969 CT COLONOGRAPHY 1969 FIT 1969 FLEX SIG 1969 sDNA (Cologuard) 1969 COLONOSCOPY 08/22/1979 COLORECTAL CANCER SCREENING 08/22/1979 HIV SCREENING 1984 HEPATITIS C SCREENING 08/22/1987 DIABETES SCREENING 10/09/2013 10/09/2010 MAMMO SCREENING 10/19/2017 10/20/2015, 11/02, 10/18/2014 PNEUMOCOCCAL VACCINE 50+ YEARS (1 of 1 - PCV) 08/22/2019 LIPID 10/25/2019 10/24/2014, 10/09/2010 YEARLY PREVENTIVE VISIT 04/02/2020 04/02/2019 HPV TEST 03/16/2021 03/16/2018, 08/11/2013 PAP 03/16/2021 03/16/2018, 03/03, 06/01/2014, Additional history exists PHQ-2 (once per calendar year) 2024 04/10/2015 DTAP/TDAP/TD VACCINE (3 - Td or Tdap) 02/28/2031 02/28/2021, 12/14/2010, 03/02/2000 HEPATITIS B VACCINE Completed 12/17/2004, 07/13/2004, 06/11/2004 ZOSTER VACCINE Completed 10/15/2021, 06/28/2021 INFLUENZA VACCINE Completed 12/04/2023, , 12/05/2020, Additional history exists COVID-19 VACCINE Completed 01/08/2024, 06/2022, 01/07/2022, Additional history exists HPV VACCINE Aged Out No longer eligi ble based on patient's age to complete this topic MENINGITIS VACCINE Aged Out No longer eligible based on patient's age to complete this topic Procedures Procedure Name Priority Date/Time Associated Diagnosis Comments HC CHEMODENERVATION MUSCLE NECK UNILAT Routine 08/16/2024 9:58 AM CDT 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 HC CHEMODENERVATION, FACE NERVE MUSCLE Routine 08/16/2024 9:58 AM CDT 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 HC CHEMODENERVATION MUSCLE NECK UNILAT Routine 06/25/2024 4:20 PM CDT 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 HC CHEMODENERVATION, FACE NERVE MUSCLE Routine 06/25/2024 4:20 PM CDT 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 HC CHEMODENERVATION MUSCLE NECK UNILAT Routine 06/07/2024 4:38 PM CDT 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 HC CHEMODENERVATION, FACE NERVE MUSCLE Routine 06/07/2024 4:38 PM CDT 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 MAMMOGRAM - [facility] SCAN 10/20/2015 12:00 AM CDT LIPID PROFILE Routine 10/24/2014 ABSTRACT PAP ([facility] EXTERNAL RESULT) Routine 06/01/2014 Screening for malignant neoplasm of cervix ABSTRACT HPV ([facility] EXTERNAL RESULT) Routine 08/11/2013 GLUCOSE Routine 10/09/2010 from Last 3 Months or Most Recently Relevant to Health Maintenance Results * MAMMOGRAM - HIM SCAN (10/20/2015 12:00 AM CDT) Anatomical Region Laterality Modality Other 10/20/2015 us Provider Outside G MAMMOGRAPHY ORDERABLES Genna l Result * Lipid Profile (10/24/2014) Cholesterol 186 115 - 199 mg/dL EXTERNAL LAB Triglycerides 58 mg/dL EXTERNAL LAB HDL Cholesterol 73 mg/dL EXTERNAL LAB LDL Cholesterol Calculated 101 mg/dL EXTERNAL LAB Blood specimen (specimen) 10/24/2014 Narrative EXTERNAL LAB - 10/24/2014 [facility] 05/15/2013 - 10/24/2014 us Provider Outside LAB - BLOOD ORDERABLES Final Re sult EXTERNAL LAB External Lab * ABSTRACT PAP-NO CHARGE (06/01/2014) 06/01/2014 Narrative MISYS - 04/10/2015 [facility] us Arcadio Castaneda MD LAB - HIM EXTERNAL RESULT Final Result MISYS * ABSTRACT HPV-NO CHARGE (08/11/2013) HPV-ABSTRACT Negative EXTERNAL LAB 08/11/2013 Narrative EXTERNAL LAB - 08/11/2013 LAB [facility] us Provider Outside LAB - HIM EXTERNAL RESULT Final Result EXTERNAL LAB External Lab * Glucose (10/09/2010) Glucose 78 70 - 99 mg/dL EXTERNAL LAB Blood specimen (specimen) 10/09/2010 Narrative EXTERNAL LAB - 10/09/2010 [facility] SUMMARIES 06/21/2008-03/07/2015 us Provider Outside LAB - BLOOD ORDERABLES Final Re sult EXTERNAL LAB from Last 3 Months or Most Recently Relevant to Health Maintenance Insurance [facility] Care Teams Oil Pipe Inspector Relationship Specialty Start Date End Date Denia Ramey MD [address] [place] [address] [id number] Otolaryngology 11/22/15 Jonelle Marie, RN Registered Nurse 03/07/16 Denia Ramey MD [address] [place] [address] [phone] Assigned Surgical Provider 12/24/19
--- OUTSIDE RECORDS SUMMARY | 2024-08-20 00:51 | XMS_ITS | Data Portability ---
Author Organization [facility], Main Office Address [address] [place] [address] Assessment Encounter Date Assessment Date Assessment LastModified [...] cleansed with alcohol Mohs case number M 21 1 4 9 Stage I: Gentle curette [...] and cell phone number given Follow-up in [place] at 1130 next Friday Not available 03/11/2021 [...] instructions recorded. Reason for Referral None Reported. Medical Equipment None Reported. Allergies Allergen ID Allergen Name Allergen Category Reaction Reaction Severity Criticality Documentation Date Start Date Code Code System Note Provider Name and Address Organization Details Recorded Time 3530 clindamyc in Not available rash Not available Not available 02/26/2021 2582 RxNorm Peterson Anabel [facility] 11:57:57 3531 hydrocodo ne Not available dizziness Not available Not available 02/26/2021 5489 RxNorm Peterson Anabel [facility] 11:58:16 3532 penicilli n V Not available rash Not available Not available 02/26/2021 7984 RxNorm Peterson Anabel [facility] 11:58:31 3533 Medicinal product containin g quinolone and acting as antibacte rial agent (product) medicatio n other Not available Not available 02/26/2021 67635 008 SNOMED jaw pain Peterson Anabel [facility] 11:59:08 3534 Substance with sulfonami de structure and antibacte rial mechanism of action (substanc e) medicatio n rash Not available Not available 02/26/2021 08104 8003 SNOMED Peterson Anabel [facility] 11:59:24 3535 tetracycl ine medicatio n chest pain Not available Not available 02/26/2021 92349 RxNorm Peterson Anabel [facility] 11:59:51 3536 trimethop rim medicatio n rash Not available Not available 02/26/2021 65580 RxNorm Peterson Anabel null, [facility] 12:00:25 3537 sulfameth oxazole medicatio n rash Not available Not available 02/26/2021 24855 RxNorm Peterson Anabel null, [facility] 12:00:42 Medications Name Sig Start Date Stop [...] Encounter Closed Date Diagnosis/Indication Diagnosis SNOMED-CT Code Diagnosis ICD10 Code Diagnosis Note [id number] Luis Daniel Little MD Main Office [address],[place] [address] 02/26/2021 09:58:07 03/11/2021 01:38:35 Basal cell carcinoma of nose [id number] C44.311 [id number] Lui sDaniel Little MD Main Office [address],[place] [address] 03/05/2021 14:45:53 03/05/2021 22:58:15 Removal of suture [id number] Z48.02 Acne 75790665 L70.9 Health Concerns Section Related Observation LastModified by Organization Detai ls LastModified Time None Recorded Concern Status LastModified by Organization Details LastModified Time None Recorded Advance Directives Directive None Recorded Payers Insurance Date Sequence Insurance Name Policy Number Policy Brown Covered Member ID Brown Member ID Guarantor Name 03/05/2021 1 [employer] [id number] Lita Vernon Asmus [id number] Lita Miner Notes Date Note Type Note Provider Name and Address Organization Details Recorded Time 02/26/2021 text/html 50-year-old mauricio francisco presents today for Mohs surgery of a biopsy-proven basal carcinoma left ala. Barely perceptible. After the biopsy is not really notable. Does not hurt does not bleed Past medical history, family history and social history unchanged in the interim since her visit in [place] Luis Daniel Little MD [address] [facility] [address], [place], [address], [facility] 03/11/2021 01:41:59 03/05/2021 text/html Returns for sutu re move status post Mohs surgery the swelling [...] currently Luis Daniel Little MD [address], [place], [address], [facility] 03/05/2021 22:57:40 OBGyn Episode No OBEpisode recorded.
--- OUTSIDE RECORDS SUMMARY | 2024-08-20 00:51 | XMS_ITS | Encounter Summary ---
Author Organization [facility] Address [address] [place] [address] Care Team Providers Care Cottage Supervisor Name Role Phone None Primary Care Provider Unavailabl e Denia Ramey MD Unavailable [phone] Elin Tristan AuD Unavailable [phone] Brittnee Espinoza AuD Unavailable [phone] Verified, Pcp Unknown Primary Care Provider Unav ailable Jonelle Marie RN Unavailable Unavailab Arcadio Moore MD Unavailable Arcadio Castaneda MD Unavailable Denia Ramey MD Unavailable [phone] Encounter Details Date Type Department Care Team (Late st Contact Info) Description 07/28/2015 [facility] Medical Advice [facility] Ear Nose and Throat [address] [facility] 4th [place] [address] Denia Ramey MD [address] [facility] [address] [place] [address] Social History Tobacco Use Types Packs/Day Years Used Date Smoking Tobacco: Never Smokeless Tobacco: Never Alcohol Use Standard Drinks/Week Comments Yes 0 (1 standard drink = 0.6 oz pur e alcohol) 2/week Comments Unknown Sex and Gender Information Value Date Recorded Sex Assigned at Female 06/21/2021 7:34 PM CDT Legal Sex Female 3:27 AM DIE POLISHER Gender Identity Female 06/21/2021 7:34 PM CDT Sexual Orientation Straight 06/21/2021 7: 34 PM CDT documented as of this encounter Plan of Treatment Not on file documented as of this encounter Visit Diagnoses Not on filedocumented in this encounter Care Teams Cottage Supervisor Relationship Specialty Start Date End Date None PCP - General 06/17/13 11/27/15 Verified, Pcp Unknown PCP - General 11/28/15 10/31/16 [place] [address] [place] [address] PCP - Assigned PCP 03/16/15 04/25/18 Denia Ramey MD [address] [id number] Otolaryngology 11/22/15 Elin Tristan AuD [address] [id number] Risk Assessment Consultant Audiology 11/22/15 04/07/17 Brittnee Espinoza AuD [facility] [address] [place] [address] Risk Assessment Consultant Audiology 11/28/15 04/01/17 Jonelle Marie, RN Registered Nurse 03/07/16 [place] [address] [place] [address] Assigned PCP 03/16/15 04/25/18 Denia Ramey MD [address] [id number] Assigned Surgical Provider 12/24/19 documented as of this encounter
--- OUTSIDE RECORDS SUMMARY | 2024-08-20 00:51 | XMS_ITS | Patient Health Record ---
Author Organization [facility] Address [address] [place] [address] Care Team Providers Care Chair Springer Name Role Phone None, No PCP Primary Care Provider UnavailYandy Pinedo Unavailable [phone] Adan Glover Unavailable [phone] Adan Hinson Unavailable [phone] Anastasia Romero Unavailable [phone] Charlene Gil Unavailable [phone] Stephanie Lr Unavailable [phone] Allergies Allergen (clinical drug ingredient) Drug/Non Drug Allergy documented on EMR Reaction Allergy Type Onset Date Status clindamycin Clindamycin Unknown Drug Allergy Act loren Penicillin Unknown Drug Allergy Active Substance with sulfonamide structure and antibacterial mechanism of action (substance) Sulfa Antibiotics Unknown Drug Allergy Active tetracycline Tetracycline Unknown Drug Allergy A ctive Results Component Value Reference Range Notes [facility]SH (IH) Reviewed date:03/29/2024 04:26:12 PM Interpretation: Performing Lab: Notes/Report: Access 2 ([id number]), [place] - [facility] Sensitive Estradiol (IH) Reviewed date:03/29/2024 04:26:12 PM Interpretation: Performing Lab: Notes/Report: Access 2 ([id number]), [place] - [facility] Sensitive Estradiol (IH) Reviewed date:09/25/2023 04:48:33 PM Interpretation: Performing Lab: Notes/Report: Access 2 ([id number]), [place] - [facility] F[facility] (IH) Reviewed date:09/25/2023 04:48:33 PM Interpretation: Performing Lab: Notes/Report: Access 2 ([id number]), [facility] - Lab Reason For Referral No Information Medications Medication SIG (Take, Route, Frequency, Duration) Notes Start Date End Date Status Magnesium Active Ocuvite Active Calcium Active Vitamin D Active Progesterone 200 MG 1 capsule at bedtime Orally Once a day for 90 days 08/13/2023 Active Loratadine PRN Active Estradiol 0.0375 MG/24HR 1 patch to skin Transdermal Two times a Week 03/23/2024 Active Social History Tobacco Use: Social History Observation Description Date Details (start date - stop date) Never Smoker NA - NA Tobacco Use/Smoking Question Answer Notes Are you a nonsmoker Problems Problem Type SNOMED Code ICD Code Onset Dates Problem Status W/U Status Risk Notes Problem Menopause (539740427) Menopausal and female climacteric states (N95.1) Active confirmed Problem Abnormal uterine bleeding (N93.9) Active confirmed Problem 61956463 Menopausal symptoms (N95.1) Active confirmed Problem 55374769 PMB (postmenopausal bleeding) (N95.0) Active confirmed Vital Signs Blood pressure diastolic 78 mm Hg 03/23/2024 Height 65 in 03/23/2024 Blood pressure systolic 120 mm Hg 03/23/2024 Weight 134.8 lbs 03/23/2024 BMI 22.43 kg/m2 03/23/2024 Encounters Encounter Location Date Provider Diagnosis [address] [place] [id number] 03/26/2024 Stephanie Jamaica Menopausal and female climacteric states N95.1 and PMB (postmenopausal bleeding) N95.0 [facility] [address] [place] [address] 03/23/2024 Stephanie Be Menopausal and female climacteric states N95.1 and PMB (postmenopausal bleeding) N95.0 [facility] [address] [place] [address] 09/24/2023 Adan Glover Menopausal symptoms N95.1 [facility] [address] [place] [address] 09/17/2023 Adan Glover Menopausal and female climacteric states N95.1 [facility] [address] [place] [address] 03/23/2024 Anastasia Romero Abnormal uterine bleeding N93.9 [facility] [address] [place] [address] 06/18/2024 Charlene Eul PMB (postmenopausal bleeding) N95.0 [facility] [address] [place] [address] 04/27/2024 [facility] [address] [place] [address] 06/15/2024 [facility] Menopausal and female climacteric states N95.1 [facility] [address] [place] [address] 03/25/2024 [facility] [address] [place] [address] 03/24/2024 [facility] [address] [place] [address] 09/15/2023 Adan Glover Assessments Encounter Date Diagnosis (ICD Code) Assessment Notes Treatment Notes Treatment Clinical Notes Section Notes 03/26/2024 Menopausal and female climacteric states (ICD-10 - N95.1) 03/26/2024 PMB (postmenopausal bleeding) (ICD-10 - N95.0) 06/18/2024 PMB (postmenopausal bleeding) (ICD-10 - N95.0) Reviewed reasoning for endometrial sampling with PMB, ultrasound criteria, etc. She has a normal endometrial strip with PMB so does not need endometrial sampling. She does not have any further bleeding on HRT at this time. OK to continue at current dose/regimen. She does appear to have a polyp, so we discussed that if her bleeding returns or if she desires to increase her patch dose and her bleeding returns we can do a D&C/H to remove the polyp. She would like to hold off on surgery at this time and continue current therapy 06/15/2024 Menopausal and female climacteric states (ICD-10 - N95.1) 03/23/2024 Menopausal and female climacteric states (ICD-10 - N95.1) 03/23/2024 PMB (postmenopausal bleeding) (ICD-10 - N95.0) 03/23/2024 Abnormal uterine bleeding (ICD-10 - N93.9) 09/24/2023 Menopausal symptoms (ICD-10 - N95.1) 09/17/2023 Menopausal and female climacteric states (ICD-10 - N95.1) 09/24/2023 Other Continue HRT x 1 year Reviewed lipid panel. Lifestyle habits are generally good - will look at dietary improvements and 150mins of daily exercise. Recommended fish oil, low inflammatory diet (no dairy). Will email Cardiometabolic food plan for guidance Recheck 1 year 35 min total time - visit prep, time with patient, post visit documentation ----ADVICE---- Elevated BP: Manage with lifestyle. Repeat evaluation in 3-6 months. Emphasize lifestyle to reduce risk factors. No T2D present. Assess for tobacco use at every visit and avoid second hand smoke. No justification found in for routine aspirin use in patients with low ASCVD risk. 03/23/2024 Other Will lower estradiol dose and see if this resolves bleeding. Bleeding started right after starting HRT and her uterine lining is <5mm so my suspicion for endometrial hyperplasia is low. She does have a possible polyp noted on US. This could also be contributing to her spotting. Appt scheduled with MD to discuss removal. If bleeding resolves with lower estradiol dose may not recommend removal. She is already taking 200 mg of progesterone nightly so will leave that the same. Can check in on bleeding at her appt with MD as well. If bleeding continues she will need an EMB. Patient would like to check estradiol and FSH levels as well. Discussed that most likely the plan will remain the same regardless of levels but I agree that checking levels is reasonable. Discussed that if menopausal symptoms return with lower patch dose then she should let us know and we can troubleshoot Plan Of Treatment Next Appt Details Provider Name:Charlene Gil, 0 08/27/2024 10:30:00 AM, [address], [place], [address], Insurance Providers Payer Name Payer Address Payer Phone Subscriber Number Group Number Insured Name Patient Relationship to Insured Coverage Start Date Coverage End Date [facility] Commercial (Ins. Bill) [address] [address] [place], [place] [id number] Asmus, Lita Self - patient is the insured Medical (General) History Medical History History ICD Code Chicken Pox Surgical History Surgery Date(Month/Year) Bunionectomy, Lt foot 2020 Bunionectomy, Rt foot 2023
--- OUTSIDE RECORDS SUMMARY | 2024-08-20 00:51 | XMS_ITS | Encounter Summary ---
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
== END 2024-08-19 10:17 | disposition home or self-care (01) ==
PROVIDERS: PCP Physician Assistant Medical; Visit Provider Surgery
DX: Z12.11 Encounter for screening for malignant neoplasm of colon (principal); Z86.0101 Personal history of adenomatous and serrated colon polyps; D12.3 Benign neoplasm of transverse colon; D12.2 Benign neoplasm of ascending colon
CPT/HCPCS: 00811; 00812; 45385; 88305; J2704

== ENCOUNTER 2024-08-20 08:31 | Outpatient (CLI) | payer OTHER, SELFPAY ==
--- NOTE | 2024-08-20 08:45 | CRLHL7_ITS ---
For Patients: As a result of the Century Cures Act, medical imaging exams and procedure reports are released immediately into your electronic medical record. You may view this report before your referring provider. If you have questions, please contact your health care provider. BILATERAL DIGITAL SCREENING MAMMOGRAM WITH COMPUTER-AIDED DETECTION AND TOMOSYNTHESIS CLINICAL HISTORY: : Routine screening exam. COMPARISON: 07/07/2023, 07/05/2022, 06/18/2021 TECHNIQUE: Digital mammogram in CC and MLO projections including computer-aided detection (CAD). Tomosynthesis was used in this interpretation. BREAST COMPOSITION: The breasts are heterogeneously dense, which may obscure small masses. FINDINGS: RIGHT Breast: No suspicious findings LEFT Breast: Focal asymmetric density upper outer quadrant 4 cm from the nipple. IMPRESSION: LEFT breast asymmetry/mass. RECOMMENDATIONS: Additional mammographic views of the LEFT breast including 3D spot-compression CC/MLO. LEFT breast ultrasound may also be required. The [facility] will contact the patient. A lay language report of this examination will be provided to the patient. BI-RADS Category 0: Incomplete: Need Additional Imaging Evaluation Dictated by Ede Carlson MD @ 08/20/2024 11:39:56 AM Dictated by: Ede Carlson MD @ 08/20/2024 11:40:02 (Electronically Signed)
--- OUTSIDE RECORDS SUMMARY | 2024-08-21 00:27 | XMS_ITS | Patient Health Record ---
Author Organization [facility] Address [address] [place] [address] Care Team Providers Care Qa Automation Architect Name Role Phone None, No PCP Primary Care Provider UnavailYandy Pinedo Unavailable [phone] Adan Glover Unavailable [phone] Adan Hinson Unavailable [phone] Anastasia Romero Unavailable [phone] Charlene Gil Unavailable [phone] Stephanie Lr Unavailable [phone] Allergies Allergen (clinical drug ingredient) Drug/Non Drug Allergy documented on EMR Reaction Allergy Type Onset Date Status clindamycin Clindamycin Unknown Drug Allergy Act loren Penicillin Unknown Drug Allergy Active Substance with sulfonamide structure and antibacterial mechanism of action (substance) Sulfa Antibiotics Unknown Drug Allergy Active tetracycline Tetracycline Unknown Drug Allergy A ctive Results Component Value Reference Range Notes Sensitive Estradiol (IH) Reviewed date:09/25/2023 04:48:33 PM Interpretation: Performing Lab: Notes/Report: Access 2 ([id number]), [place] - Lab F[facility] (IH) Reviewed date:09/25/2023 04:48:33 PM Interpretation: Performing Lab: Notes/Report: Access 2 ([id number]), [place] [facility] FSH (IH) Reviewed date:03/29/2024 04:26:12 PM Interpretation: Performing Lab: Notes/Report: Access 2 ([id number]), [place] [facility] Sensitive Estradiol (IH) Reviewed date:03/29/2024 04:26:12 PM Interpretation: Performing Lab: Notes/Report: Access 2 ([id number]), [facility] - Lab Reason For Referral No [...] Status W/U Status Risk Notes Problem Menopause (453368270) Menopausal and female climacteric states (N95.1) Active confirmed Problem Abnormal uterine bleeding (N93.9) Active confirmed Problem 55494792 Menopausal symptoms (N95.1) Active confirmed Problem 29416020 PMB (postmenopausal bleeding) (N95.0) Active confirmed Vital Signs Blood pressure diastolic 78 mm Hg 03/23/2024 Height 65 in 03/23/2024 Blood pressure systolic 120 mm Hg 03/23/2024 Weight 134.8 lbs 03/23/2024 BMI 22.43 kg/m2 03/23/2024 Encounters Encounter Location Date Provider Diagnosis [address] [place] [id number] 03/26/2024 Stephanie [place] Menopausal and female climacteric states N95.1 and PMB (postmenopausal bleeding) N95.0 [facility] [address] [place] [address] 03/23/2024 Stephanie Be Menopausal and female climacteric states N95.1 and PMB (postmenopausal bleeding) N95.0 [facility] [address] [place] [address] 09/24/2023 Adan Glover Menopausal symptoms N95.1 [facility] [address] [place] [address] 09/17/2023 Adan Glover Menopausal and female climacteric states N95.1 [facility] [address] [place] [address] 03/23/2024 Anastasia Romero Abnormal uterine bleeding N93.9 [facility] [address] [place] [address] 06/18/2024 Charlene Eul PMB (postmenopausal bleeding) N95.0 [facility] [address] [place] [address] 04/27/2024 [facility] [address] [place] [address] 06/15/2024 [facility] Menopausal and female climacteric states N95.1 [facility] [address] [place] [address] 03/25/2024 [facility] [address] [place] [address] 03/24/2024 [facility] [address] [place] [address] 09/15/2023 Adan Glover Assessments Encounter Date Diagnosis (ICD Code) Assessment Notes Treatment Notes Treatment Clinical Notes Section Notes 06/18/2024 PMB (postmenopausal bleeding) (ICD-10 - N95.0) [...] female climacteric states (ICD-10 - N95.1) 03/26/2024 Menopausal and female climacteric states (ICD-10 - N95.1) 03/26/2024 PMB (postmenopausal bleeding) (ICD-10 - N95.0) 09/24/2023 Other Continue HRT x 1 year [...] Provider Name:Charlene Gil, 0 08/27/2024 10:30:00 AM, [address], [place], [address], Insurance Providers Payer Name Payer Address Payer Phone Subscriber Number Group Number Insured Name Patient Relationship to Insured Coverage Start Date Coverage End Date [facility] Commercial (Ins. Bill) [address] [address] [place], [place] [id number] Asmus, Lita Self - patient is the insured Medical (General) History Medical History History ICD Code Chicken Pox Surgical History Surgery Date(Month/Year) Bunionectomy, Lt foot 2020 Bunionectomy, Rt foot 2023
--- OUTSIDE RECORDS SUMMARY | 2024-08-21 00:27 | XMS_ITS | Clinical Summary ---
Author Organization [facility] Address [address] [place] [address] Care Team Providers Care Flood Control Engineer Name Role Phone Chapo Chiang MD Primary Care Provider [phone] Source Comments You are receiving this document as you are listed as the primary care provider,follow-up provider, or the patient has been referred to you for consultation.This is in compliance with the Medicare andKettering Healthcaid EHR Incentive Program,which states Providers who transition their patient to another setting of careor provider of care or refers their patient to another provider of care shouldprovide summary care record for each transition of care or referral. [employer] Allergies Active Allergy Reactions Criticality Noted Date [...] y rs, 3 dose series) 12/17/2004,07/13/2004,06/11/2004 Influenza ([place]y Only) (Flul aval Quad 0.5, 3+ yrs) 12/05/2016 Influenza IIV4 (Quadrivalent) 0.5mL (83018) 06/2015 Td 03/02/2000 Tdap 12/14/2010 Family History [...] Comments Blood Pressure 157/66 04/02/2019 7:44 AM MACHINE TOOL REBUILDER Pulse 94 04/02/2019 7:44 AM MACHINE TOOL REBUILDER Temperature 36.7 C (98.1 F) 06/11/2004 12:24 PM CDT C: 36.7 C Respiratory Rate - - Oxygen Saturation - - Inhaled Oxygen Concentration - - Weight 60.4 kg (133 lb 3.2 oz) 04/02/2019 7:44 A M MACHINE TOOL REBUILDER Height 170.2 cm (5' 7) 04/02/2019 7:44 AM MACHINE TOOL REBUILDER Body Mass Index 20.86 04/02/2019 7:44 AM MACHINE TOOL REBUILDER Plan of Treatment Health Maintenance Due Date [...] LDL (IF NEEDED) Routine 04/02/2019 8:18 AM MACHINE TOOL REBUILDER Screening cholesterol level ANATOMICAL PATH LIQUID BASED Routine 02/09/2007 7:07 AM MACHINE TOOL REBUILDER from Last 3 Months or Most Recently Relevant to Health Maintenance Results * (ABNORMAL) Lipid Panel - LDLD if Trig Hi [CHOLF] (04/02/2019 8:18 AM MACHINE TOOL REBUILDER) Cholesterol 207(H) 0 - 199 mg/dL 04/02/2019 12:47 PM [facility] Triglyceride 69 <=149 mg/dL 04/02/2019 12:47 PM [facility] HDL Cholesterol 75 >=40 mg/dL 0 12:47 PM [facility] LDL, Calculated 118 <130 mg/dL 0 12:47 PM [facility] Non HDL Chol, Calculated 132 mg/dL 04/02/2019 12:47 PM [facility] Cholesterol/HDL Ratio 2.8 04/02/2019 12:47 PM [facility] Hours Fasting 12 04/02/2019 12:47 PM [facility] Blood Venipuncture / Unknown 04/02/2019 8:18 AM MACHINE TOOL REBUILDER 04/02/2019 8:18 AM MACHINE TOOL REBUILDER us Fany Edwards DO LAB_1 Final Resu lt [facility] [address] [place] [address], [facility] [phone] [facility] [address] [place] [address], [facility] [phone] * Pap Smear (02/09/2007 7:07 AM MACHINE TOOL REBUILDER) PAP Smear Liquid Based SEE TEXT No normal range HP CONVERSION Comment: Patient: LITA VALENZUELA CERVICAL CYTOLOGY REPORT Pathology # [id number] Date Obtained: Date Received: CYTOLOGIC IMPRESSION: Negative for intraepithelial lesion or malignancy. Fungal organisms identified. Verified 02/12/07 by: LKR (electronic signature) ADDITIONAL DATA LMP: CLINICAL HIST LIQUID BASED PAP CERVICAL SPECIMEN ADEQUACY: Satisfactory. ENDOCERVICAL CELLS: Present. 02/09/2007 7:07 AM MACHINE TOOL REBUILDER us Ritu Ty APRN, DIRECTOR OF CASEWORK DEPARTMENT LAB_1 Fi nal Result HP CONVERSION from Last 3 Months or Most Recently Relevant to Health Maintenance Care Teams Flood Control Engineer Relationship Specialty Start Date End Date Chapo Chiang MD [address] [place] [address] PCP - General 06/03/10
--- OUTSIDE RECORDS SUMMARY | 2024-08-21 00:27 | XMS_ITS | Encounter Summary ---
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
--- OUTSIDE RECORDS SUMMARY | 2024-08-21 00:27 | XMS_ITS | Clinical Summary ---
Author Organization [facility] Address [address] [place] [address] Care Team Providers Care Metal Grinder Name Role Phone Denia Ramey MD Unavailable [phone] Jonelle Marie RN Unavailable Unavailab Denia Reyes MD Unavailable [phone] Allergies Active Allergy Reactions Criticality Noted Date [...] PM CDT Legal Sex Female 3:27 AM BOXING TRAINER Gender Identity Female 06/21/2021 7:34 PM CDT Sexual Orientation Straight 06/21/2021 7: 34 PM CDT Last Filed Vital Signs Vital Sign Reading Time Taken Comments Blood Pressure 120/72 04/24/2015 7:40 AM BOXING TRAINER Pulse 91 04/24/2015 7:40 AM BOXING TRAINER Temperature 36.8 C (98.2 F) 04/24/2015 7:40 AM BOXING TRAINER Respiratory Rate 16 04/01/2015 5:36 PM BOXING TRAINER Oxygen Saturation 98% 04/24/2015 7:40 AM BOXING TRAINER Inhaled Oxygen Concentration - - Weight 59.9 kg (132 lb) 02/03/2019 11:21 AM BOXING TRAINER Height 170.2 cm (5' 7) 02/03/2019 11:21 AM BOXING TRAINER Body Mass Index 20.67 02/03/2019 11:21 AM BOXING TRAINER Plan of Treatment Health Maintenance Due Date [...] face Blepharospasm of left eye MAMMOGRAM - [facility] SCAN 10/20/2015 12:00 AM CDT LIPID PROFILE Routine 10/24/2014 ABSTRACT PAP ([facility] EXTERNAL RESULT) Routine 06/01/2014 Screening for malignant neoplasm of cervix ABSTRACT HPV ([facility] EXTERNAL RESULT) Routine 08/11/2013 GLUCOSE Routine 10/09/2010 [...] (specimen) 10/24/2014 Narrative EXTERNAL LAB - 10/24/2014 [facility] 05/15/2013 - 10/24/2014 us Provider Outside LAB - BLOOD ORDERABLES Final Re sult EXTERNAL LAB External Lab * ABSTRACT PAP-NO CHARGE (06/01/2014) 06/01/2014 Narrative MISYS - 04/10/2015 [facility] [place] Arcadio Castaneda MD LAB - HIM EXTERNAL RESULT Final Result MISYS * ABSTRACT HPV-NO CHARGE (08/11/2013) HPV-ABSTRACT Negative EXTERNAL LAB 08/11/2013 Narrative EXTERNAL LAB - 08/11/2013 LAB [facility] us Provider Outside LAB - HIM EXTERNAL RESULT Final Result EXTERNAL LAB External Lab * Glucose (10/09/2010) Glucose 78 70 - 99 mg/dL EXTERNAL LAB Blood specimen (specimen) 10/09/2010 Narrative EXTERNAL LAB - 10/09/2010 [facility] 06/21/2008-03/07/2015 us Provider Outside LAB - BLOOD ORDERABLES Final Re sult EXTERNAL LAB from Last 3 Months or Most Recently Relevant to Health Maintenance Insurance [facility] COMM[facility]CIAL Care Teams Metal Grinder Relationship Specialty Start Date End Date Denia Ramey MD [address] [place] [address] [id number] Otolaryngology 11/22/15 Jonelle Marie, RN Registered Nurse 03/07/16 Denia Ramey MD [address] [place] [address] [phone] Assigned Surgical Provider 12/24/19
--- OUTSIDE RECORDS SUMMARY | 2024-08-21 00:27 | XMS_ITS | Clinical Summary ---
Author Organization [employer] [facility] Address [address] [place] [address] Care Team Providers Care Software Quality Assurance Specialist Name Role Phone Kai Cruz MD Primary Care Provider [phone] Allergies Active Allergy Reactions Criticality Noted Date Comments Sulfamethoxazole-Trimethopr im Hives 05/20/2014 Clindamycin Hives 05/20/2014 Levofloxacin Other - Describe In Comment Field 05/20/2014 Jaw pain Sulfa (Sulfonamide Antibiotics) Hives 05/20/2014 Hydrocodone-Acetaminophen Dizziness 05/20/2014 Medications cetirizine (ZYRTEC) 10 mg tablet Take 1 tablet by mouth once daily. 0 10/21/2014 Active Active Problems No known active problems Encounters Date Type Department Care Team Description 08/20/2024 Lab Requisition [facility] [phone] Dionisio Bojorquez MD from Last 3 Months Social History Tobacco Use Types Packs/Day Years Used Date Smoking Tobacco: Never Smokeless Tobacco: Never Alcohol Use Standard Drinks/Week Comments Yes 0 (1 standard drink = 0.6 oz pur e alcohol) Comments Unknown Sex and Gender Information Value Date Recorded Sex Assigned at Not on file Legal Sex Female 8:43 AM MANAGER INTERN Gender Identity Not on file Sexual Orientation [...] Additional history exists COVID-19 vaccine series ( - 2023- season) 2023 01/04/2021, 04/28/2020, 03/31/2020 Influenza Vaccine (Season Ended) 2024 Procedures Procedure Name Priority Date/Time Associated Diagnosis Comments KIER HAND THIN PREP PAP SCREEN IMAGED Routine 03/16/2018 12:00 PM MANAGER INTERN from Last 3 Months or Most Recently Relevant to Health Maintenance Results * KIER HAND THIN PREP PAP SCREEN IMAGED (03/16/2018 12:00 PM MANAGER INTERN) Case Report Gynecologic Cytology Report Case: [id number] Authorizing Provider: Zulema Fagan PA-C Collected: 03/16/2018 1200 First Screen: Jenae Guillen Received: 03/16/2018 1630 Specimen: KIER HAND ThinPrep Vial Screening, Cervical/Vaginal 03/23/2018 2:09 PM MANAGER INTERN [facility] INTERPRETATION/ RESULT NEGATIVE FOR INTRAEPITHELIAL LESION OR MALIGNANCY (NIL) (none) 03/23/2018 2:09 PM MANAGER INTERN [facility] at 1409 MANAGER INTERN SPECIMEN ADEQUACY Satisfactory for evaluation No endocervical component seen 03/23/2018 2:09 PM MANAGER INTERN [facility] EN[facility]ME LABOR[facility] HPV REQUEST HPV if ASCUS 03/23/2018 2:09 PM MANAGER INTERN [facility] Date of LMP 12/15/2017 03/23/2018 2:09 PM MANAGER INTERN [facility] EN[facility] LABOR[facility]ORY Last Pap Date 08/11/2013 03/23/2018 2:09 PM MANAGER INTERN [facility] Last Pap Result NIL 9 2:09 PM MANAGER INTERN [facility] Comment:HPV NEGATIVE. Automated Review Successful 03/23/2018 2:09 PM MANAGER INTERN [facility] Comment:Specimen processed s uccessfully by automated roll capper device, ThinPrep Imaging System, [employer] Note The pap test is a [...] lesions. Cytology is screened and interpreted at [facility] - [address], [place] [address] and [facility] - [address]; [place] [address] and [facility] - [address]; [place] [address] and [facility] [address]; [place] [address] 03/23/2018 2:09 PM MANAGER INTERN [facility] Other (Cervical/Vagina l) 03/16/2018 12:00 PM MANAGER INTERN 03/16/2018 4:30 PM MANAGER INTERN june Rylan [facility]/CYTOLOGY Final R esult [facility] [address] [place] [address], [place] from Last 3 Months or Most Recently Relevant to Health Maintenance Insurance [facility] Care Teams Software Quality Assurance Specialist Relationship Specialty Start Date End Date Kai Cruz MD PCP - General Family Practice 09/09/17
--- OUTSIDE RECORDS SUMMARY | 2024-08-21 00:27 | XMS_ITS | Encounter Summary ---
Author Organization [facility] Address [address] [place] [address] Care Team Providers Care Bale Tie Machine Operator Name Role Phone None Primary Care Provider Unavailabl e Denia Ramey MD Unavailable [phone] Elin Tristan AuD Unavailable [phone] Brittnee Espinoza AuD Unavailable [phone] Verified, Pcp Unknown Primary Care Provider Unav ailable Jonelle Marie RN Unavailable Unavailab Arcadio Moore MD Unavailable Arcadio Castaneda MD Unavailable Denia Ramey MD Unavailable [phone] Encounter Details Date Type Department Care Team (Late st Contact Info) Description 07/28/2015 [facility] Medical Advice [facility] Ear Nose and Th[facility] [address] [place] [address] Denia Ramey MD [address] [facility] [address] [place] [address] Social History Tobacco Use Types Packs/Day Years Used Date Smoking Tobacco: Never Smokeless Tobacco: Never Alcohol Use Standard Drinks/Week Comments Yes 0 (1 standard drink = 0.6 oz pur e alcohol) 2/week Comments Unknown Sex and Gender Information Value Date Recorded Sex Assigned at Female 06/21/2021 7:34 PM CDT Legal Sex Female 3:27 AM NETWORK INTELLIGENCE ANALYST Gender Identity Female 06/21/2021 7:34 PM CDT Sexual Orientation Straight 06/21/2021 7: 34 PM CDT documented as of this encounter Plan of Treatment Not on file documented as of this encounter Visit Diagnoses Not on filedocumented in this encounter Care Teams Bale Tie Machine Operator Relationship Specialty Start Date End Date None PCP - General 06/17/13 11/27/15 Verified, Pcp Unknown PCP - General 11/28/15 10/31/16 [place] [address] [place] [address] PCP - Assigned PCP 03/16/15 04/25/18 Denia Ramey MD [address] [id number] Otolaryngology 11/22/15 Elin Tristan AuD [address] 828885 Administrative Resources Associate Audiology 11/22/15 04/07/17 Brittnee Espinoza AuD [facility] [address] [place] [address] Administrative Resources Associate Audiology 11/28/15 04/01/17 Jonelle Marie, RN Registered Nurse 03/07/16 [place] [address] [place] [address] Assigned PCP 03/16/15 04/25/18 Denia Ramey MD [address] [id number] Assigned Surgical Provider 12/24/19 documented as of this encounter
== END 2024-08-20 08:32 | disposition home or self-care (01) ==
PROVIDERS: PCP Physician Assistant Medical; Visit Provider Physician Assistant Medical
DX: Z12.31 Encounter for screening mammogram for malignant neoplasm of breast (principal); N63.20 Unspecified lump in the left breast, unspecified quadrant; R92.333 Mammographic heterogeneous density, bilateral breasts
CPT/HCPCS: 77063; 77067

== ENCOUNTER 2024-08-25 08:34 | Outpatient (CLI) | payer OTHER, SELFPAY ==
--- NOTE | 2024-08-25 08:45 | CRLHL7_ITS ---
For Patients: As a result of the Cures Act, medical imaging exams and procedure reports are released immediately into your electronic medical record. You may view this report before your referring provider. If you have questions, please contact your health care provider. LEFT DIAGNOSTIC MAMMOGRAM WITH COMPUTER-AIDED DETECTION AND TOMOSYNTHESIS LEFT BREAST ULTRASOUND CLINICAL HISTORY: LEFT breast mass/asymmetry. COMPARISON: 08/20/2024, 07/07/2023, 07/05/2022 TECHNIQUE: Digital LEFT mammogram in two projections. Computer-aided detection and tomosynthesis were used in this interpretation. Real-time ultrasound imaging of LEFT breast with imaging documentation. BREAST COMPOSITION: The breasts are heterogeneously dense, which may obscure small masses. FINDINGS: 3D spot compression CC/MLO LEFT breast mammogram images submitted. Decreased conspicuity of the previously noted asymmetric density. No architectural distortion. No suspicious calcifications. Targeted LEFT breast ultrasound performed. At 12-1 o`clock, 2-4 cm from the nipple, small cysts are present which measure up to approximately 5 mm. No solid masses. No shadowing lesion. IMPRESSION: Benign fibrocystic changes LEFT breast 12-1 o`clock, 2-4 cm from the nipple. No evidence of malignancy. RECOMMENDATIONS: Routine screening mammography. A lay language report of this examination will be provided to the patient. BI-RADS Category 2: Benign Dictated by Ede Carlson MD @ 08/25/2024 11:02:26 AM /sp SP/Dictated by: Ede Carlson MD @ 08/25/2024 11:02:00 AM (Electronically Signed)
--- NOTE | 2024-08-25 09:15 | CRLHL7_ITS ---
For Patients: As a result of the Century Cures Act, medical imaging exams and procedure reports are released immediately into your electronic medical record. You may view this report before your referring provider. If you have questions, please contact your health care provider. PLEASE SEE BREAST DIAGNOSTIC MAMMOGRAM PERFORMED SAME DAY. CRL:sp SP/Dictated by: Ede Carlson MD @ 08/25/2024 11:02:00 AM (Electronically Signed)
--- OUTSIDE RECORDS SUMMARY | 2024-08-26 00:17 | XMS_ITS | Data Portability ---
Author Organization [place] - [facility], Main Office Address [address] [place] [address] Assessment Encounter Date Assessment Date Assessment LastModified [...] and cell phone number given Follow-up in [place] at 1130 next Friday Not available 03/11/2021 [...] Not available 02/26/2021 2582 RxNorm Peterson Anabel [facility] 11:57:57 3531 hydrocodo ne Not available dizziness Not available Not available 02/26/2021 5489 RxNorm Peterson Anabel [facility] 11:58:16 3532 penicilli n V Not available rash Not available Not available 02/26/2021 7984 RxNorm Peterson Anabel [facility] 11:58:31 3533 Medicinal product containin g quinolone and acting as antibacte rial agent (product) medicatio n other Not available Not available 02/26/2021 29297 008 SNOMED jaw pain Peterson Anabel [facility] 11:59:08 3534 Substance with sulfonami de structure and antibacte rial mechanism of action (substanc e) medicatio n rash Not available Not available 02/26/2021 74336 8003 SNOMED Peterson Anabel [facility] 11:59:24 3535 tetracycl ine medicatio n chest pain Not available Not available 02/26/2021 38842 RxNorm Peterson Anabel [facility], [facility] 11:59:51 3536 trimethop rim medicatio n rash Not available Not available 02/26/2021 73658 RxNorm Peterson Anabel [facility], [facility] 12:00:25 3537 sulfameth oxazole medicatio n rash Not available Not available 02/26/2021 96020 RxNorm Peterson Anabel null, [facility] 12:00:42 Medications Name Sig Start Date Stop [...] SNOMED-CT Code Diagnosis ICD10 Code Diagnosis Note 23605 Luis Daniel Little MD Main Office [address] [facility] [address] 02/26/2021 09:58:07 03/11/2021 01:38:35 Basal cell carcinoma of nose 532337398 C44.311 66003 Luis Daniel Little MD Main Office [address] [place] [address] 03/05/2021 14:45:53 03/05/2021 22:58:15 Removal of suture 70705798 Z48.02 Acne 47930564 L70.9 Health Concerns Section Related Observation LastModified by Organization Detai ls LastModified Time None Recorded Concern Status LastModified by Organization Details LastModified Time None Recorded Advance Directives Directive None Recorded Payers Insurance Date Sequence Insurance Name Policy Number Policy Brown Covered Member ID Brown Member ID Guarantor Name 03/05/2021 1 PREFERREDONE [id number] Lita Vernon Asmus [id number] Lita Godfreyus Notes Date Note Type Note Provider Name and Address Organization Details Recorded Time 02/26/2021 text/html 50-year-old femketty francisco presents today for Mohs surgery of a biopsy-proven basal carcinoma left ala. Barely perceptible. After the biopsy is not really notable. Does not hurt does not bleed Past medical history, family history and social history unchanged in the interim since her visit in [place] Luis Daniel Little MD [address] [address], [place], [address], [facility] 03/11/2021 01:41:59 03/05/2021 text/html Returns for sutu [...] Daniel Little MD [address], [place], [address], [facility] 03/05/2021 22:57:40 OBGyn Episode No OBEpisode recorded.
--- OUTSIDE RECORDS SUMMARY | 2024-08-26 00:17 | XMS_ITS | Encounter Summary ---
Author Organization [facility] Address [address] [place] [address] Care Team Providers Care Merchant Mill Utility Worker Name Role Phone Denia Ramey MD Unavailable Jonelle Marie RN Unavailable Unavailab Denia Reyes MD Unavailable [phone] Encounter Details Date Type Department Care Team [...] PM CDT Legal Sex Female 3:27 AM SCIENTIFIC PROGRAMMER ANALYST Gender Identity Female 06/21/2021 7:34 PM CDT Sexual Orientation Straight 06/21/2021 7: 34 PM CDT documented as of this encounter Plan of Treatment Not on file documented as of this encounter Visit Diagnoses Not on filedocumented in this encounter Care Teams Merchant Mill Utility Worker Relationship Specialty Start Date End Date Denia Ramey MD [address] [place] [address] [address] [place] [address] Otolaryngology 11/22/15 Jonelle Marie, RN Registered Nurse 03/07/16 Denia Ramey MD [address] [place] [address] Assigned Surgical Provider 12/24/19 documented as of this encounter
--- OUTSIDE RECORDS SUMMARY | 2024-08-26 00:17 | XMS_ITS | Patient Health Record ---
Author Organization [facility] Address [address] [place] [address] Care Team Providers Care Nursing Consultant Name Role Phone None, No PCP Primary Care Provider UnavailYandy Pinedo Unavailable [phone] Adan Glover Unavailable [phone] Adan Hinson Unavailable [phone] Anastasia Romero Unavailable [phone] Charlene Gil Unavailable [phone] Stephanie Lr Unavailable [phone] Allergies Allergen (clinical drug ingredient) Drug/Non Drug Allergy documented on EMR Reaction Allergy Type Onset Date Status clindamycin Clindamycin Unknown Drug Allergy Act loren Penicillin Unknown Drug Allergy Active Substance with sulfonamide structure and antibacterial mechanism of action (substance) Sulfa Antibiotics Unknown Drug Allergy Active tetracycline Tetracycline Unknown Drug Allergy A ctive Results Component Value Reference Range Notes Sensitive Estradiol (IH) Reviewed date:03/29/2024 04:26:12 PM Interpretation: Performing Lab: Notes/Report: Access 2 ([id number]), [facility] ([facility]) Reviewed date:03/29/2024 04:26:12 PM Interpretation: Performing Lab: Notes/Report: Access 2 ([id number]), [facility] - [facility] Sensitive Estradiol (IH) Reviewed date:09/25/2023 04:48:33 PM Interpretation: Performing Lab: Notes/Report: Access 2 ([id number]), [facility] ([facility]) Reviewed date:09/25/2023 04:48:33 PM Interpretation: Performing Lab: Notes/Report: Access 2 ([id number]), [facility] - Lab Reason For Referral No [...] Status W/U Status Risk Notes Problem Menopause (442367180) Menopausal and female climacteric states (N95.1) Active confirmed Problem Abnormal uterine bleeding (N93.9) Active confirmed Problem [id number] Menopausal symptoms (N95.1) Active confirmed Problem [id number] PMB (postmenopausal bleeding) (N95.0) Active confirmed Vital Signs Blood pressure diastolic 78 mm Hg 03/23/2024 Height 65 in 03/23/2024 Blood pressure systolic 120 mm Hg 03/23/2024 Weight 134.8 lbs 03/23/2024 BMI 22.43 kg/m2 03/23/2024 Encounters Encounter Location Date Provider Diagnosis [address] [place] [id number] 03/26/2024 Stephanie [place] Menopausal and female climacteric states N95.1 and PMB (postmenopausal bleeding) N95.0 [facility] [address] [place] [address] 03/23/2024 Stephanie Be Menopausal and female climacteric states N95.1 and PMB (postmenopausal bleeding) N95.[address] [facility] [address] [place] [address] 09/24/2023 Adan Glover Menopausal symptoms N95.1 [facility] [address] [place] [address] 09/17/2023 Adan Glover Menopausal and female climacteric states N95.1 [facility] [address] [place] [address] 03/23/2024 Anastasia Romero Abnormal uterine bleeding N93.9 [facility] [address] [place] [address] 06/18/2024 Charlene Eul PMB (postmenopausal bleeding) N95.0 [facility] [address] [place] [address] 04/27/2024 [facility] [address] [place] [address] 06/15/2024 [facility] Menopausal and female climacteric states N95.1 [facility] [address] [place] [address] 03/25/2024 [facility] [address] [facility] [place] [address] 03/24/2024 [facility] [address] [place] [address] 09/15/2023 Adan Glover Assessments Encounter Date Diagnosis (ICD Code) Assessment Notes Treatment Notes Treatment Clinical Notes Section Notes 09/17/2023 Menopausal and female climacteric states (ICD-10 - N95.1) 09/24/2023 Menopausal symptoms (ICD-10 - N95.1) 03/26/2024 Menopausal and female [...] Abnormal uterine bleeding (ICD-10 - N93.9) 09/24/2023 Other Continue HRT x 1 year [...] Provider Name:Charlene Gil, 0 08/27/2024 10:30:00 AM, [address], [place], [address], Insurance Providers Payer Name Payer Address Payer Phone Subscriber Number Group Number Insured Name Patient Relationship to Insured Coverage Start Date Coverage End Date [facility] Commercial (Ins. Bill) [address] [address] [place], [place] [id number] [phone] [id number] Asmus, Lita Self - patient is the insured Medical (General) History Medical History History ICD Code Chicken Pox Surgical History Surgery Date(Month/Year) Bunionectomy, Lt foot 2020 Bunionectomy, Rt foot 2023
--- OUTSIDE RECORDS SUMMARY | 2024-08-26 00:17 | XMS_ITS | Clinical Summary ---
Author Organization [facility] Address [address] [place] [address] Care Team Providers Care Tool Carrier Name Role Phone Denia Ramey MD Unavailable [phone] Jonelle Marie RN Unavailable Unavailab Denia Reyes MD Unavailable [phone] Allergies Active Allergy Reactions Criticality Noted Date [...] PM CDT Legal Sex Female 3:27 AM COMPOSITION MOLDER Gender Identity Female 06/21/2021 7:34 PM CDT Sexual Orientation Straight 06/21/2021 7: 34 PM CDT Last Filed Vital Signs Vital Sign Reading Time Taken Comments Blood Pressure 120/72 04/24/2015 7:40 AM COMPOSITION MOLDER Pulse 91 04/24/2015 7:40 AM COMPOSITION MOLDER Temperature 36.8 C (98.2 F) 04/24/2015 7:40 AM COMPOSITION MOLDER Respiratory Rate 16 04/01/2015 5:36 PM COMPOSITION MOLDER Oxygen Saturation 98% 04/24/2015 7:40 AM COMPOSITION MOLDER Inhaled Oxygen Concentration - - Weight 59.9 kg (132 lb) 02/03/2019 11:21 AM COMPOSITION MOLDER Height 170.2 cm (5' 7) 02/03/2019 11:21 AM COMPOSITION MOLDER Body Mass Index 20.67 02/03/2019 11:21 AM COMPOSITION MOLDER Plan of Treatment Health Maintenance Due Date [...] face Blepharospasm of left eye MAMMOGRAM - [facility] SCAN 10/20/2015 12:00 AM CDT LIPID PROFILE Routine 10/24/2014 ABSTRACT PAP ([facility] EXTERNAL RESULT) Routine 06/01/2014 Screening for malignant neoplasm of cervix ABSTRACT HPV ([facility] EXTERNAL RESULT) Routine 08/11/2013 GLUCOSE Routine 10/09/2010 [...] (specimen) 10/24/2014 Narrative EXTERNAL LAB - 10/24/2014 [facility] 05/15/2013 - 10/24/2014 us Provider Outside LAB - BLOOD ORDERABLES Final Re sult EXTERNAL LAB External Lab * ABSTRACT PAP-NO CHARGE (06/01/2014) 06/01/2014 Narrative MISYS - 04/10/2015 [facility] [place] us Arcadio Castaneda MD LAB - HIM EXTERNAL RESULT Final Result MISYS * ABSTRACT HPV-NO CHARGE (08/11/2013) HPV-ABSTRACT Negative EXTERNAL LAB 08/11/2013 Narrative EXTERNAL LAB - 08/11/2013 LAB [facility] us Provider Outside LAB - HIM EXTERNAL RESULT Final Result EXTERNAL LAB External Lab * Glucose (10/09/2010) Glucose 78 70 - 99 mg/dL EXTERNAL LAB Blood specimen (specimen) 10/09/2010 Narrative EXTERNAL LAB - 10/09/2010 [facility] LAB SUMMARIES 06/21/2008-03/07/2015 us Provider Outside LAB - BLOOD ORDERABLES Final Re sult EXTERNAL LAB from Last 3 Months or Most Recently Relevant to Health Maintenance Insurance [facility] COMM[facility]CIAL Care Teams Tool Carrier Relationship Specialty Start Date End Date Denia Ramey MD [address] [place] [address] [phone] Otolaryngology 11/22/15 Jonelle Marie, RN Registered Nurse 03/07/16 Denia Ramey MD [address] [place] [address] [id number] Assigned Surgical Provider 12/24/19
--- OUTSIDE RECORDS SUMMARY | 2024-08-26 00:17 | XMS_ITS | Encounter Summary ---
Author Organization [facility] Address [address] [place] [address] Care Team Providers Care Industrial Radiographer Name Role Phone None Primary Care Provider Unavailabl e Denia Ramey MD Unavailable [phone] Elin Tristan AuD Unavailable [phone] Brittnee Espinoza AuD Unavailable [phone] Verified, Pcp Unknown Primary Care Provider Unav ailable Jonelle Marie RN Unavailable Unavailab Arcadio Moore MD Unavailable Arcadio Castaneda MD Unavailable Denia Ramey MD Unavailable [phone] Encounter Details Date Type Department Care Team (Late st Contact Info) Description 07/28/2015 [facility] [address] [facility] 4th [place] [address] Denia Ramey MD [address] [facility] [address] [place] [address] Social History Tobacco Use Types Packs/Day Years Used Date Smoking Tobacco: Never Smokeless Tobacco: Never Alcohol Use Standard Drinks/Week Comments Yes 0 (1 standard drink = 0.6 oz pur e alcohol) 2/week Comments Unknown Sex and Gender Information Value Date Recorded Sex Assigned at Female 06/21/2021 7:34 PM CDT Legal Sex Female 3:27 AM VISUAL SUPERVISOR Gender Identity Female 06/21/2021 7:34 PM CDT Sexual Orientation Straight 06/21/2021 7: 34 PM CDT documented as of this encounter Plan of Treatment Not on file documented as of this encounter Visit Diagnoses Not on filedocumented in this encounter Care Teams Industrial Radiographer Relationship Specialty Start Date End Date None PCP - General 06/17/13 11/27/15 Verified, Pcp Unknown PCP - General 11/28/15 10/31/16 [place] [address] [place] [address] PCP - Assigned PCP 03/16/15 04/25/18 Denia Ramey MD [address] [address] Otolaryngology 11/22/15 Elin Tristan AuD [address] [id number] Song Lyricist Audiology 11/22/15 04/07/17 Brittnee Espinoza AuD [facility] [address] [place] [address] Song Lyricist Audiology 11/28/15 04/01/17 Jonelle Marie, RN Registered Nurse 03/07/16 [place] [address] [place] [address] Assigned PCP 03/16/15 04/25/18 Denia Ramey MD [address] [id number] Assigned Surgical Provider 12/24/19 documented as of this encounter
--- OUTSIDE RECORDS SUMMARY | 2024-08-26 00:17 | XMS_ITS | Clinical Summary ---
Author Organization [facility] Address [address] [place] [address] Care Team Providers Care Jig Worker Name Role Phone Kai Cruz MD Primary Care Provider [phone] Allergies Active Allergy Reactions Criticality Noted Date [...] Department Care Team Description 08/20/2024 Lab Requisition [facility] [phone] Dionisio Bojorquez MD from Last 3 Months Social History Tobacco Use Types Packs/Day Years Used Date Smoking Tobacco: Never Smokeless Tobacco: Never Alcohol Use Standard Drinks/Week Comments Yes 0 (1 standard drink = 0.6 oz pur e alcohol) Comments Unknown Sex and Gender Information Value Date Recorded Sex Assigned at Not on file Legal Sex Female 8:43 AM CREDIT COMPLIANCE OFFICER Gender Identity Not on file Sexual Orientation [...] Procedure Name Priority Date/Time Associated Diagnosis Comments LAB TRACKING EVENT Routine 08/19/2024 11 :50 AM CDT PATH TISSUE EXAM Routine 08/19/2024 11:5 0 AM CDT MEDICAL INFORMATION OFFICER THIN PREP PAP SCREEN IMAGED Routine 03/16/2018 12:00 PM CREDIT COMPLIANCE OFFICER from Last 3 Months or Most Recently Relevant to Health Maintenance Results * LAB TRACKING EVENT (08/19/2024 11:50 AM CDT) Other (Other) Client Collect / Unknown 08/19/2024 11:50 AM CDT 08/20/2024 6:22 AM CDT us Dionisio Bojorquez MD LAB BILL ONLY Final Resu lt [facility] [address] [place] [place] [address], * PATH TISSUE EXAM (08/19/2024 11:50 AM CDT) Case Report Pathology Report Case: [id number] Authorizing Provider: Dionisio Bojorquez MD Collected: 08/19/2024 1150 Ordering Location: [facility] Received: 08/20/2024 1126 Pathologist: Jarred Bright MD Specimens: A) - Splenic Flexure Polyp, multiple polyps B) - Ascending Colon Polyp 08/23/2024 3:35 PM CDT [facility] Final Diagnosis A) COLON, SPLENIC FLEXURE, POLYPECTOMIES: 1. Sessile serrated adenomas (2) 2. Negative for overt dysplasia 3. Per the colonoscopy report: a. Polyp sizes: 5 mm - 8 mm b. Resection: Complete c. Retrieval: Complete B) COLON, ASCENDING, POLYPECTOMY: 1. Sessile serrated adenoma 2. Negative for overt dysplasia 3. Per the colonoscopy report: a. Polyp size: 9 mm b. Resection: Complete c. Retrieval: Complete 08/23/2024 3:35 PM CDT [facility] at 1535 CDT Clinical Information Ms. Miner is a 54 y.o. undergoing surveillance colonoscopy 08/23/2024 3:35 PM CDT [facility] Gross Description A) Received in formalin are 15 collier mucosal fragments ranging from 2 mm to 13 mm in greatest dimension, which are entirely submitted in 2 cassettes. It is labeled with the patient's name and designated splenic flexure. B) Received in formalin is a 20 x 5 x 1 mm aggregate of collier mucosa. Submitted in one cassette. It is labeled with the patient's name and designated ascending colon. Rosita Wellington Noon 08/20/2024 12:37 PM 08/23/2024 3:35 PM CDT [facility] Microscopic Description The final diagnosis is based on microscopic examination of appropriate sections of all specimens. 08/23/2024 3:35 PM CDT [facility] Additional Information Interpreted at [facility] - [address], [place] [address] 08/23/2024 3:35 PM CDT [facility] Other (Splenic Flexure Polyp) 08/19/2024 11:50 AM CDT 08/20/2024 11:26 AM CDT Specimen (specimen) (Ascending Colon Polyp) 08/19/2024 11:50 AM CDT 08/20/2024 11:26 AM CDT us Dionisio Bojorquez MD PATHOLOGY/CYTOLOGY Final R esult [facility] [address] [place] [address], * MEDICAL INFORMATION OFFICER THIN PREP PAP SCREEN IMAGED (03/16/2018 12:00 PM CREDIT COMPLIANCE OFFICER) Case Report Gynecologic Cytology Report Case: [id number] Authorizing Provider: Zulema Fagan PA-C Collected: 03/16/2018 1200 First Screen: Jenae Guillen Received: 03/16/2018 1630 Specimen: MEDICAL INFORMATION OFFICER ThinPrep Vial Screening, Cervical/Vaginal 03/23/2018 2:09 PM CREDIT COMPLIANCE OFFICER [facility] INTERPRETATION/ RESULT NEGATIVE FOR INTRAEPITHELIAL LESION OR MALIGNANCY (NIL) (none) 03/23/2018 2:09 PM CREDIT COMPLIANCE OFFICER [facility] at 1409 CREDIT COMPLIANCE OFFICER SPECIMEN ADEQUACY Satisfactory for evaluation No endocervical component seen 03/23/2018 2:09 PM CREDIT COMPLIANCE OFFICER [facility] HPV REQUEST HPV if ASCUS 03/23/2018 2:09 PM CREDIT COMPLIANCE OFFICER [facility] Date of LMP 12/15/2017 03/23/2018 2:09 PM CREDIT COMPLIANCE OFFICER [facility] Last Pap Date 08/11/2013 03/23/2018 2:09 PM CREDIT COMPLIANCE OFFICER [facility] Last Pap Result NIL 9 2:09 PM CREDIT COMPLIANCE OFFICER [facility] Comment:HPV NEGATIVE. Automated Review Successful 03/23/2018 2:09 PM CREDIT COMPLIANCE OFFICER [facility] Comment:Specimen processed s uccessfully by automated gang mower operator device, ThinPrep Imaging System, [employer] Note The pap test is a [...] lesions. Cytology is screened and interpreted at [facility] - [address], [place] [address] [facility] - [address]; [place] [address] and [facility] - [address]; [place] [address] and [facility] [address]; [place] [address] 03/23/2018 2:09 PM CREDIT COMPLIANCE OFFICER [facility] Other (Cervical/Vagina l) 03/16/2018 12:00 PM CREDIT COMPLIANCE OFFICER 03/16/2018 4:30 PM CREDIT COMPLIANCE OFFICER June Rylan SAUCEDO PATHOLOGY/CYTOLOGY Final R esult [facility] [address] [place] [address], [place] from Last 3 Months or Most Recently Relevant to Health Maintenance Insurance [facility] Care Teams Jig Worker Relationship Specialty Start Date End Date Kai Cruz MD PCP - General Family Practice 09/09/17
--- OUTSIDE RECORDS SUMMARY | 2024-08-26 00:17 | XMS_ITS | Clinical Summary ---
Author Organization [facility] Address [address] [place] [address] Care Team Providers Care Industrial Technologist Name Role Phone Chapo Chiang MD Primary Care Provider [phone] Source Comments You are receiving this document as you are listed as the primary care provider,follow-up provider, or the patient has been referred to you for consultation.This is in compliance with the Medicare and[facility] EHR Incentive Program,which states Providers who transition their patient to another setting of careor provider of care or refers their patient to another provider of care shouldprovide summary care record for each transition of care or referral. [email or web address] Allergies Active Allergy Reactions Criticality Noted Date [...] y rs, 3 dose series) 12/17/2004,07/13/2004,06/11/2004 Influenza ([place] Only) (Flul aval Quad 0.5, 3+ yrs) 12/05/2016 Influenza IIV4 (Quadrivalent) 0.5mL (35904) 06/2015 Td 03/02/2000 Tdap 12/14/2010 Family History [...] Comments Blood Pressure 157/66 04/02/2019 7:44 AM CENSUS TAKER Pulse 94 04/02/2019 7:44 AM CENSUS TAKER Temperature 36.7 C (98.1 F) 06/11/2004 12:24 PM CDT C: 36.7 C Respiratory Rate - - Oxygen Saturation - - Inhaled Oxygen Concentration - - Weight 60.4 kg (133 lb 3.2 oz) 04/02/2019 7:44 A M CENSUS TAKER Height 170.2 cm (5' 7) 04/02/2019 7:44 AM CENSUS TAKER Body Mass Index 20.86 04/02/2019 7:44 AM CENSUS TAKER Plan of Treatment Health Maintenance Due Date [...] LDL (IF NEEDED) Routine 04/02/2019 8:18 AM CENSUS TAKER Screening cholesterol level ANATOMICAL PATH LIQUID BASED Routine 02/09/2007 7:07 AM CENSUS TAKER from Last 3 Months or Most Recently Relevant to Health Maintenance Results * (ABNORMAL) Lipid Panel - LDLD if Trig Hi [CHOLF] (04/02/2019 8:18 AM CENSUS TAKER) Cholesterol 207(H) 0 - 199 mg/dL 04/02/2019 12:47 PM [facility] Triglyceride 69 <=149 mg/dL 04/02/2019 12:47 PM [facility] HDL Cholesterol 75 >=40 mg/dL 0 12:47 PM [facility] LDL, Calculated 118 <130 mg/dL 0 12:47 PM [facility] Non HDL Chol, Calculated 132 mg/dL 04/02/2019 12:47 PM [facility] Cholesterol/HDL Ratio 2.8 04/02/2019 12:47 PM [facility] Hours Fasting 12 04/02/2019 12:[address] [facility] Blood Venipuncture / Unknown 04/02/2019 8:18 AM CENSUS TAKER 04/02/2019 8:18 AM CENSUS TAKER us Fany Edwards DO LAB_1 Final Resu lt [facility] [address] [facility] [place] [address], [facility] [[email or web address]] [phone] [facility] [address] [place] [address], [facility] [[email or web address]] [phone] * Pap Smear (02/09/2007 7:07 AM CENSUS TAKER) PAP Smear Liquid Based SEE TEXT No normal range HP CONVERSION Comment: Patient: LITA VALENZUELA CERVICAL CYTOLOGY REPORT Pathology # [id number] Date Obtained: Date Received: CYTOLOGIC IMPRESSION: Negative for intraepithelial lesion or malignancy. Fungal organisms identified. Verified 02/12/07 by: LKR (electronic signature) ADDITIONAL DATA LMP: CLINICAL HIST LIQUID BASED PAP CERVICAL SPECIMEN ADEQUACY: Satisfactory. ENDOCERVICAL CELLS: Present. 02/09/2007 7:07 AM CENSUS TAKER us Ritu Ty APRN, HUMAN RESOURCES OPERATIONS MANAGER LAB_1 Fi nal Result HP CONVERSION from Last 3 Months or Most Recently Relevant to Health Maintenance Care Teams Industrial Technologist Relationship Specialty Start Date End Date Chapo Chiang MD [address] [place] [address] PCP - General 06/03/10
== END 2024-08-25 08:35 | disposition home or self-care (01) ==
LOC: MAMMO 08:35
PROVIDERS: PCP Physician Assistant Medical; Visit Provider Physician Assistant Medical
DX: N63.20 Unspecified lump in the left breast, unspecified quadrant (principal); R92.8 Other abnormal and inconclusive findings on diagnostic imaging of breast
CPT/HCPCS: 76642; 77065; G0279